=== PATIENT | male | born 1950 | race African-American/Black ===

== ENCOUNTER 2024-03-11 10:31 | Inpatient (IN) | payer OTHER ==
[2024-03-11] MEDS ORDERED: CEFTRIAXONE 1000 MG/VIAL ONE (10:46)
[2024-03-11] MEDS ORDERED: ALBUTEROL 2.5 MG/3 ML NEB SOL ONE (10:46)
[2024-03-11] MEDS ORDERED: IPRATROPIUM BROM 0.5MG/2.5ML ONE (10:47)
[2024-03-11] MEDS ORDERED: NA CHLORIDE 0.9% 1,000 ML ONE (10:47)
[2024-03-11] MEDS ORDERED: METHYLPREDNISOLONE 125 MG INJ ONE (10:47)
[2024-03-11 11:01] LABS: SARS-CoV-2 Antigen CONTROL BLUE LINE VIS/BG OK; SARS-CoV-2 Antigen Rapid Res Negative (Negative)
[2024-03-11 11:25] LABS: PT Prothrombin Time 12.7 SECONDS (9.4-12.5); PTT, Activated Partial Thromb 32.9 SECONDS (24.3-36.9); Protime INR 1.14
--- NOTE | 2024-03-11 11:29 | RAD REPORT ---
EXAMINATION: ONE VIEW CHEST XR CLINICAL INDICATION: COUGH TECHNIQUE: Frontal chest projection is submitted. Examination is limited by patient positioning and t echnique. COMPARISON: No prior exam. FINDINGS: Moderate bilateral pulmonary opacities are present which may represent pulmonary edema or pneumonia. The heart is mildly enlarged in size. Trace right pleural fluid. No displaced fractures identified.
[2024-03-11 11:37] LABS: Absolute Basophils 0.1 K/uL (0-0.5); Absolute Eosinophils 0.1 K/uL (0-0.5); Absolute Lymphocytes (CBC) 1.5 K/uL (0.7-4.9); Absolute Monocytes 0.8 K/uL (0.1-1.3); Absolute Neutrophil 11.7 K/uL (1.8-8.0); Basophils % 0.4 % (0-1.3); Eosinophils % 0.5 % (0-4.4); Hematocrit 41.6 % (39.6-49.0); Hemoglobin 13.8 g/dL (13.6-17.9); Lymphocytes % 10.5 % (15.3-44.8); MCHC 33.2 g/dL (32.0-36.0); MCV 90.4 fL (80-100); MPV 10.7 fL (7.6-11.3); Monocytes % 5.4 % (3.3-12.3); Neutrophils % 83.2 % (41.7-73.7); Platelets 157 thou/uL (152-406); RBC Red Blood Cell Count 4.61 M/uL (4.33-5.43); Red Cell Distribution Width 13.5 % (12.1-15.2)
[2024-03-11 11:38] LABS: Albumin 4.1 g/dL (3.4-5.0); Albumin/Globulin Ratio 1.1 (1.1-1.8); Anion Gap 10.8 mEq/L (5.0-15.0); Bilirubin Total 0.6 mg/dL (0.2-1.0); Globulin 3.8 g/dL (2.3-3.5); Potassium 3.8 mEq/L (3.5-5.1); Protein, Total 7.9 g/dL (6.4-8.2); Troponin High Sensitivity 42.5 pg/mL (<58.9)
[2024-03-11 11:56] LABS: Blood Morphology Comment NOT SEEN (NOT SEEN); Platelet Estimate ADEQ; White Blood Cell Scan OK (OK)
[2024-03-11] MEDS ORDERED: AZITHROMYCIN 500 MG INJ IVPB ONE (11:57)
[2024-03-11] MEDS ORDERED: NA CHLORIDE 0.9% 250 ML ONE (11:57)
[2024-03-11] MEDS ORDERED: LORazepam 2 MG/ML VIAL ONE (12:18)
--- NOTE | 2024-03-11 12:31 | EDPHYS ---
Physician Documentation [facility] Name: Thiago Piper Age: 73 yrs Sex: Male : 1950 Arrival Date: 03/11/2024 Time: 10:31 Bed 7 Private MD: ED Physician Fernie Jeronimo HPI: 03/11 10:37 This 73 yrs old Male presents to ER via EMS with complaints of Shortness Of Breath. ec2 10:37 Patient arrives today for shortness of breath. Reports progressive shortness of breath ec2 since this morning. Patient reports some cough and cold symptoms as well. No vomiting, no diarrhea, no fevers or chills. Reports otherwise no significant medical history. No known pulmonary pathology, no known previous cardiac disease.. Historical: - Allergies: 10:34 No Known Allergies; ld1 - PMHx: 10:37 None; ld1 - PSHx: 10:34 None; ld1 - Immunization history:: Adult Immunizations up to date. - Infectious Disease History:: CDIFF, . - Social history:: Smoking status: Patient denies any tobacco usage or history of. ROS: 10:37 Constitutional: as per hpi ec2 Exam: 10:37 Constitutional: GEN: NAD Head: atraumatic Eyes: EOMI Ears: External ears are ec2 normal. CV: Tachycardia LUNGS: Tachypnea with scattered wheezes noted throughout multiple lung barreto. ABD: non-distended SKIN: no evidence of rashes MSK: no evidence of trauma Vital Signs: 10:33 BP 150 / 93; Pulse 113; Resp 26; Temp 98.6(TE); Pulse Ox 93% on R/A; Weight 77.56 kg; ld1 Height 5 ft. 10 in. ; Pain 0/10; 11:17 BP 154 / 74; Pulse 109; Resp 30; Pulse Ox 92% on R/A; ld1 11:20 Pulse Ox 94% on 2 lpm NC; ld1 12:00 Pulse Ox 91% on 2 lpm NC; ld1 12:10 BP 152 / 79; Pulse 111; Resp 30; Pulse Ox 91% on 2 lpm NC; ld1 12:15 BP 139 / 79; Pulse 104; Resp 28; Pulse Ox 98% on BiPAP; ld1 12:46 BP 114 / 74; Pulse 102; Resp 27; Pulse Ox 96% on BiPAP; ld1 13:45 BP 109 / 69; Pulse 90; ec2 15:06 BP 124 / 76; Pulse 84; Pulse Ox 99% on BiPAP; MAP 92 mmHg; tm6 16:00 BP 119 / 79; Pulse 88; Resp 24; Pulse Ox 98% on BiPAP; ld1 17:00 BP 126 / 75; Pulse 89; Resp 22; Pulse Ox 98% on 5 lpm NC; ld1 10:33 Body Mass Index 24.54 (77.56 kg, 177.8 cm) ld1 10:33 Pain Scale: Adult ld1 MDM: 10:35 Medical Screening Exam initiated ec2 10:37 Data reviewed: vital signs, nurses notes. ED course: Patient arrives today for ec2 evaluation of shortness of breath. Examination yields tachycardia along with tachypnea and scattered wheezes. Will obtain lab work, EKG, chest x-ray.. 10:38 ED course: EKG independently reviewed and interpreted by me, shows sinus tachycardia, ec2 rate of 105, no acute ST segment elevations, intervals are nonactionable.. 11:39 ED course: Patient with slight lactic acid elevation, patient with slight BNP elevation ec2 as well, will continue to slowly fluid resuscitate the patient given concern for potentiating worsening resp distress. 11:44 ED course: Sepsis reassessment complete. ec2 11:56 ED course: Patient with some increased tachypnea, will hold on giving patient's second ec2 liter of crystalloid at this time, high suspicion for volume overload and I want to precipitate worsening respiratory distress. Will place patient on BiPAP in the interim. 12:29 ED course: On reassessment patient breathing comfortably on BiPAP, will admit for CHF ec2 versus pneumonia with BiPAP requirement. Discussed with hospitalist, pending admission.. 13:44 ED course: Sepsis reassessment complete.. ec2 13:45 ED course: Patient with improving tachycardia, marked improvement in work of breathing..ec2 03/11 10:36 Order name: Blood Culture Adult (2) ec2 03/11 10:36 Order name: CBC with Diff; Complete Time: 13:44 ec2 03/11 10:36 Order name: CMP; Complete Time: 11:39 ec2 03/11 10:36 Order name: Lactate w/ 2H reflex if indic.; Complete Time: 11:40 ec2 03/11 10:36 Order name: Protime (+inr); Complete Time: 11:34 ec2 03/11 10:36 Order name: Ptt, Activated; Complete Time: 11:34 ec2 03/11 10:36 Order name: Influenza Screen (a \T\ B); Complete Time: 11:34 ec2 03/11 10:36 Order name: SARS RAPID; Complete Time: 11:15 ec2 03/11 10:36 Order name: Troponin HS; Complete Time: 11:39 ec2 03/11 10:37 Order name: BNP; Complete Time: 11:39 ec2 03/11 11:42 Order name: Ghost Lactate-NO COLLECT Timer; Complete Time: 13:44 EDMS 03/11 11:57 Order name: CBC Smear Scan; Complete Time: 13:44 EDMS 03/11 13:57 Order name: ABG ld1 03/11 14:33 Order name: Lactate Sepsis 2 HR Follow-up; Complete Time: 14:37 EDMS 03/11 16:03 Order name: Magnesium EDMS 03/11 16:03 Order name: CBC with Automated Diff EDMS 03/11 16:03 Order name: CBC with Automated Diff EDMS 03/11 16:03 Order name: CBC with Automated Diff EDMS 03/11 16:03 Order name: CBC with Automated Diff EDMS 03/11 16:03 Order name: Comprehensive Metabolic Panel EDMS 03/11 16:03 Order name: Comprehensive Metabolic Panel EDMS 03/11 16:03 Order name: Comprehensive Metabolic Panel EDMS 03/11 16:03 Order name: Comprehensive Metabolic Panel EDMS 03/11 16:17 Order name: Procalcitonin EDMS 03/11 16:17 Order name: Procalcitonin EDMS 03/11 10:36 Order name: Chest Single View XRAY; Complete Time: 11:34 ec2 03/11 13:19 Order name: BIPAP ec2 03/11 14:52 Order name: Chest For Pe Angio EDMS 03/11 16:03 Order name: Echo with Doppler EDMS 03/11 16:05 Order name: Respiratory Therapy Consult EDMS 03/11 10:36 Order name: Accucheck; Complete Time: 10:39 ec2 03/11 10:36 Order name: Cardiac monitoring; Complete Time: 10:39 ec2 03/11 10:36 Order name: EKG - Nurse/Tech; Complete Time: 10:39 03/11 10:36 Order name: IV Saline Lock - Large Bore; Complete Time: 11:14 03/11 10:36 Order name: Labs collected and sent; Complete Time: 11:14 03/11 10:36 Order name: O2 Per Protocol; Complete Time: 10:39 03/11 10:36 Order name: O2 Sat Monitoring; Complete Time: 10:39 03/11 10:36 Order name: Vital Signs; Complete Time: 10:39 ec2 Administered Medications: 11:16 Drug: DuoNeb Nebulize (3:1) (2.5 mg - 0.5 mg) 3 ml Nebulizer once Route: Nebulizer; ld1 11:43 Follow up: Response: No adverse reaction ld1 11:16 Drug: MethylPrednisoLONE IVP 125 mg IVP once Route: IVP; Site: right antecubital; ld1 11:43 Follow up: Response: No adverse reaction ld1 11:16 Drug: Rocephin IV 1 grams IV at calculated rate once; Given slow IV push per pharmacy ld1 instructions Route: IV; Rate: calculated rate; Site: right antecubital; 11:43 Follow up: Response: No adverse reaction; IV Status: Completed infusion ld1 11:16 Drug: NS 0.9% IV 1000 ml IV at 1 bolus Per protocol; to be given as a bolus over 60 ld1 minutes Route: IV; Rate: 1 bolus; Site: right antecubital; 11:43 Follow up: Response: No adverse reaction; IV Status: Completed infusion; IV Intake: ld1 1000ml 12:09 Not Given (Physician Discretion): ns 0.9% 1000 ml IV at 1 bolus Per protocol; to be ld1 given as a bolus over 60 minutes 12:10 Drug: AZITHromycin IVPB 500 mg IVPB once over 1 hrs; (mix in 250 mL NS) Route: IVPB; ld1 Infused Over: 1 hrs; Site: right antecubital; 12:45 Follow up: Response: No adverse reaction; IV Status: Completed infusion; IV Intake: ld1 250ml 12:24 Drug: Ativan IVP 0.5 mg IVP once Route: IVP; Site: right antecubital; ld1 12:34 Follow up: Response: No adverse reaction ld1 12:44 Drug: Codeine-Guaifenesin PO Liquid (10 mg-100 mg/5 mL) 5 ml PO once Route: PO; ld1 12:45 Follow up: Response: No adverse reaction ld1 12:44 Drug: Tessalon Perle PO 100 mg PO once Route: PO; ld1 12:46 Follow up: Response: No adverse reaction ld1 Disposition: 12:29 Critical Care:. ec2 Disposition Summary: 03/11/24 12:30 Hospitalization Ordered Notes: Hospitalization Status: Inpatient Admission ec2 Provider: Henrry Benton ec2 Condition: Stable ec2 Problem: new ec2 Symptoms: have improved ec2 Bed/Room Type: Standard ec2 Location: Intensive Care Unit(03/11/24 16:29) Room Assignment: 7-(03/11/24 16:29) Diagnosis - Heart failure, unspecified ec2 - Pneumonia, unspecified organism ec2 - Severe sepsis without septic shock ec2 Forms: - Medication Reconciliation Form ec2 - SBAR form ec2 - Leadership Thank You Letter ec2 Critical care time excluding procedures: 12:29 Critical care time: Bedside Care: 30 minutes, Consultation: 5 minutes. Total time: 35 ec2 minutes Signatures: Dispatcher [employer] Marlyn Muller RN RN Kayleen Arriaga RN RN ld1 Fernie Jeronimo MD MD ec2 Corrections: (The following items were deleted from the chart) 10:37 10:37 BLOOD CULTURE*+BA.LAB.BRZ ordered. EDMS EDMS 10:37 10:37 CBC+H.LAB.BRZ ordered. EDMS EDMS 10:37 10:37 COMPREHENSIVE METABOLIC PANEL+C.LAB.BRZ ordered. EDMS EDMS 10:37 10:37 LACTATE+C.LAB.BRZ ordered. EDMS EDMS 10:37 10:37 PROTIME (+INR)+COAG.LAB.BRZ ordered. EDMS EDMS 10:37 10:37 PTT, ACTIVATED+COAG.LAB.BRZ ordered. EDMS EDMS 10:37 10:37 Influenza Screen (A \T\ B)+BA.LAB.BRZ ordered. EDMS EDMS 10:37 10:37 SARS-COV-2 Antigen Rapid+I.LAB.BRZ ordered. EDMS EDMS 10:37 10:37 Troponin High Sensitivity+C.LAB.BRZ ordered. EDMS EDMS 10:37 10:37 Chest Single View+RAD.RAD.BRZ ordered. EDMS EDMS 15:25 12:30 ec2 ss 15:48 12:30 Telemetry/MedSurg (Inpatient) ec2 ss 15:48 15:25 220 ss ss 15:49 15:48 ss ss 16:29 15:48 [facility] ER HOLD ss ss 16:29 15:49 ERHOLD- ss ss
--- NOTE | 2024-03-11 12:31 | ER ---
Nurse's Notes [facility] Name: Thiago Piper Age: 73 yrs Sex: Male : 1950 Arrival Date: 03/11/2024 Time: 10:31 Bed 7 Private MD: Diagnosis: Heart failure, unspecified;Pneumonia, unspecified organism;Severe sepsis without septic shock Presentation: 03/11 10:33 Chief complaint: EMS states: Shortness of breath beginning this morning. Coronavirus ld1 screen: At this time, the client does not indicate any symptoms associated with coronavirus-19. Ebola Screen: No symptoms or risks identified at this time. Initial Sepsis Screen: Does the patient meet any 2 criteria? No. Patient's initial sepsis screen is negative. Does the patient have a suspected source of infection? No. Patient's initial sepsis screen is negative. Risk Assessment: Do you want to hurt yourself or someone else? Patient reports no desire to harm self or others. Onset of symptoms was March 11, 2024 at 10:33. 10:33 Method Of Arrival: EMS: [facility] ld1 10:33 Acuity: SORIN 2 ld1 Triage Assessment: 10:34 General: Appears in no apparent distress. uncomfortable, Behavior is cooperative, ld1 anxious. Pain: Denies pain. EENT: No signs and/or symptoms were reported regarding the EENT system. Neuro: Level of Consciousness is awake, alert, obeys commands, Oriented to person, place, time, situation, Appropriate for age. Cardiovascular: Capillary refill is > 3 seconds Patient's skin is warm and dry. Rhythm is sinus tachycardia. Respiratory: Reports shortness of breath at rest on exertion Airway is patent Respiratory effort is even, labored, Onset: The symptoms/episode began/occurred this morning, the patient has moderate shortness of breath. GI: Abdomen is flat, non-distended. : No signs and/or symptoms were reported regarding the genitourinary system. Derm: No signs and/or symptoms reported regarding the dermatologic system. Musculoskeletal: No signs and/or symptoms reported regarding the musculoskeletal system. Historical: - Allergies: 10:34 No Known Allergies; ld1 - PMHx: 10:37 None; ld1 - PSHx: 10:34 None; ld1 - Immunization history:: Adult Immunizations up to date. - Infectious Disease History:: CDIFF, . - Social history:: Smoking status: Patient denies any tobacco usage or history of. Screenin:37 [facility] ED Fall Risk Assessment (Adult) History of falling in the last 3 months, ld1 including since admission No falls in past 3 months (0 pts) Confusion or Disorientation No (0 pts) Intoxicated or Sedated No (0 pts) Impaired Gait No (0 pts) Mobility Assist Device Used No (0 pt) Altered Elimination No (0 pt) Score/Fall Risk Level 0 - 2 = Low Risk Oriented to surroundings, Maintained a safe environment, Educated pt \T\ family on fall prevention, incl call for assistance when getting out of bed, Assessed \T\ reinforced patient's understanding of fall precautions, Provided non-skid footwear, Hourly rounding (assess needs \T\ fall precautionary measures) done, Used ambulatory aids as needed (educated on \T\ assisted with), Used gait belt as appropriate. Abuse screen: Denies threats or abuse. Denies injuries from another. Abuse screen: Denies threats or abuse. Nutritional screening: No deficits noted. Tuberculosis screening: No symptoms or risk factors identified. Assessment: 10:37 Reassessment: See triage assessment. Cardiovascular: Capillary refill < 3 seconds ld1 Patient's skin is warm and dry. Cardiovascular: Rhythm is sinus tachycardia. Respiratory: Airway is patent Respiratory effort is even, labored, Breath sounds with wheezes bilaterally. 11:17 Reassessment: No changes from previously documented assessment. Pt c/o shortness of ld1 breath. Notified ERP. Patient states symptoms have not improved. 11:20 Reassessment: Pt placed on 2L NC per Dr. Jeronimo. ld1 12:10 Reassessment: RT at bedside - BIPAP requested by ERP. ld1 12:15 Reassessment: Pt requesting anxiety medication for BIPAP machine. Notified ERP. See MAY ld1 for orders. 13:30 Reassessment: Patient appears in no apparent distress at this time. No changes from ld1 previously documented assessment. Patient denies pain at this time. 15:00 Reassessment: Patient appears in no apparent distress at this time. No changes from ld1 previously documented assessment. Patient states symptoms have improved. 17:00 Reassessment: Patient appears in no apparent distress at this time. No changes from ld1 previously documented assessment. Respiratory: Reports shortness of breath Airway is patent Respiratory effort is even, labored. Vital Signs: 10:33 BP 150 / 93; Pulse 113; Resp 26; Temp 98.6(TE); Pulse Ox 93% on R/A; Weight 77.56 kg; ld1 Height 5 ft. 10 in. ; Pain 0/10; 11:17 BP 154 / 74; Pulse 109; Resp 30; Pulse Ox 92% on R/A; ld1 11:20 Pulse Ox 94% on 2 lpm NC; ld1 12:00 Pulse Ox 91% on 2 lpm NC; ld1 12:10 BP 152 / 79; Pulse 111; Resp 30; Pulse Ox 91% on 2 lpm NC; ld1 12:15 BP 139 / 79; Pulse 104; Resp 28; Pulse Ox 98% on BiPAP; ld1 12:46 BP 114 / 74; Pulse 102; Resp 27; Pulse Ox 96% on BiPAP; ld1 13:45 BP 109 / 69; Pulse 90; ec2 15:06 BP 124 / 76; Pulse 84; Pulse Ox 99% on BiPAP; MAP 92 mmHg; tm6 16:00 BP 119 / 79; Pulse 88; Resp 24; Pulse Ox 98% on BiPAP; ld1 17:00 BP 126 / 75; Pulse 89; Resp 22; Pulse Ox 98% on 5 lpm NC; ld1 10:33 Body Mass Index 24.54 (77.56 kg, 177.8 cm) ld1 10:33 Pain Scale: Adult ld1 ED Course: 10:32 Patient arrived in ED. ld1 10:34 Fernie Jeronimo MD is Attending Physician. ec2 10:34 Triage completed. ld1 10:34 Arm band placed on right wrist. ld1 10:37 Patient has correct armband on for positive identification. Placed in gown. Bed in low ld1 position. Call light in reach. Side rails up X2. environmental monitoring specialist on. Pulse ox on. NIBP on. Door closed. Noise minimized. Warm blanket given. 10:37 No provider procedures requiring assistance completed. ld1 10:39 Kayleen Arriaga, MALENA is Primary Nurse. ld1 10:45 SARS RAPID Sent. ld1 10:45 Influenza Screen (a \T\ B) Sent. ld1 10:49 Chest Single View XRAY In Process Unspecified. EDMS 10:56 First set of blood cultures drawn by me. ty 11:10 Inserted saline lock: 20 gauge in right antecubital area, using aseptic technique. ty Blood collected. Flushed with 10 mL NS. 11:10 Initial lab(s) drawn, by me, sent to lab. Second set of blood cultures drawn by me. ty 11:14 Blood Culture Adult (2) Sent. ty 11:14 CBC with Diff Sent. ty 11:14 CMP Sent. ty 11:14 Lactate w/ 2H reflex if indic. Sent. ty 11:15 Protime (+inr) Sent. ty 11:15 Ptt, Activated Sent. ty 11:15 BNP Sent. ty 11:15 Troponin HS Sent. ty 12:30 Henrry Benton is Hospitalizing Provider. ec2 15:52 Chest For Pe Angio In Process Unspecified. EDMS 17:22 Patient admitted, IV remains in place. ld1 Administered Medications: 11:16 Drug: DuoNeb Nebulize (3:1) (2.5 mg - 0.5 mg) 3 ml Nebulizer once Route: Nebulizer; ld1 11:43 Follow up: Response: No adverse reaction ld1 11:16 Drug: MethylPrednisoLONE IVP 125 mg IVP once Route: IVP; Site: right antecubital; ld1 11:43 Follow up: Response: No adverse reaction ld1 11:16 Drug: Rocephin IV 1 grams IV at calculated rate once; Given slow IV push per pharmacy ld1 instructions Route: IV; Rate: calculated rate; Site: right antecubital; 11:43 Follow up: Response: No adverse reaction; IV Status: Completed infusion ld1 11:16 Drug: NS 0.9% IV 1000 ml IV at 1 bolus Per protocol; to be given as a bolus over 60 ld1 minutes Route: IV; Rate: 1 bolus; Site: right antecubital; 11:43 Follow up: Response: No adverse reaction; IV Status: Completed infusion; IV Intake: ld1 1000ml 12:09 Not Given (Physician Discretion): ns 0.9% 1000 ml IV at 1 bolus Per protocol; to be ld1 given as a bolus over 60 minutes 12:10 Drug: AZITHromycin IVPB 500 mg IVPB once over 1 hrs; (mix in 250 mL NS) Route: IVPB; ld1 Infused Over: 1 hrs; Site: right antecubital; 12:45 Follow up: Response: No adverse reaction; IV Status: Completed infusion; IV Intake: ld1 250ml 12:24 Drug: Ativan IVP 0.5 mg IVP once Route: IVP; Site: right antecubital; ld1 12:34 Follow up: Response: No adverse reaction ld1 12:44 Drug: Codeine-Guaifenesin PO Liquid (10 mg-100 mg/5 mL) 5 ml PO once Route: PO; ld1 12:45 Follow up: Response: No adverse reaction ld1 12:44 Drug: Tessalon Perle PO 100 mg PO once Route: PO; ld1 12:46 Follow up: Response: No adverse reaction ld1 Medication: 10:37 VIS not applicable for this client. ld1 Intake: 11:43 IV: 1000ml; Total: 1000ml. ld1 12:45 IV: 250ml; Total: 1250ml. ld1 Outcome: 12:30 Decision to Hospitalize by Provider. ec2 17:22 Admitted to ICU accompanied by nurse, accompanied by tech, via stretcher, room 7, ld1 Report called to MALENA Taveras 17:22 Condition: stable 17:22 Instructed on the need for admit, 17:25 Patient left the ED. ld1 Signatures: Dispatcher [employer] Kayleen Dominguez RN RN ld1 Fernie Jeronimo MD MD ec2 Yocasta Adams RN RN [id number] Ryan Morrison
[2024-03-11] MEDS ORDERED: BENZONATATE 100 MG CAP PO ONE (12:33)
[2024-03-11] MEDS ORDERED: GUAIFENESIN/CODEINE 5ML UCUP ONE (12:34)
--- NOTE | 2024-03-11 14:43 | P.HP ---
Certification for Inpatient Patient admitted to: Inpatient With expected LOS: >2 Midnights Patient will require the following post-hospital care: None Practitioner: I am a practitioner with admitting privileges, knowledge of patient current condition, hospital course, and medical plan of care. Services: Services provided to patient in accordance with Admission requirements found in Title 42 Section 412.3 of the Code of Federal Regulations Patient History Date of Service: 03/11/24 Reason for admission: Acute hypoxic respiratory failure History of Present Illness: Mr. Piper is a 73-year-old gentleman who denies any past medical history. He presented to the emergency department this morning with a complaint of sudden shortness of breath occurring at 9 AM. Initial vital signs 150/93, 113, 26, 93% on room air, 98.6. Secondary to COPD exacerbation concerns and a 2.1 lactate, 1250 mL of normal saline were administered in the emergency department. Upon lab review with elevated BNP and pulmonary edema on chest x-ray. fluids DC'd. Mr. Piper did experience some worsening tachypnea and was placed on BiPAP. Hospitalist group was asked to admit the patient for acute respiratory failure. We ordered a CT PE protocol and will obtain an ABG. On exam Mr. Piper states he is feeling better, he denies chest pain, orthopnea, fever, chills. He is noted to remain tachycardic, has a holosystolic blowing mitral murmur, no edema, positive expiratory wheezes. Abdomen soft, nontender, bowel sounds present x 4 quadrants. Patient does state he smokes 1 pack/day for many years, has no known lung or cardiac. Family history: States his father had diabetes and his brother had heart disease. He takes no medications. He states he does rarely take an aspirin. Labs are essentially unremarkable except for a white count of 14 with a small left shift, lactate 2.1, proBNP 5056. Of note troponin is negative at 42.5 and flu and COVID are negative. Imaging shows bilateral pulmonary opacities which could represent fluid overload versus infectious process. Will proceed with CT scanning of the chest for PE and better differentiation between COPD exacerbation, pneumonia, pleural effusion, atelectasis, pulmonary embolism, or even postobstructive pneumonia before placing orders. CT PE protocol does not show PE, pneumonia, COPD, it does show small bilateral pleural effusions with atelectasis Will admit to the acute care floor. Allergies No Known Allergies Allergy (Unverified 03/11/24 14:43) Home medications list reviewed: Yes (None) Home Medications: NK [No Home Meds] 03/11/24 - Past Medical/Surgical History Has patient received pneumonia vaccine in the past: No Diabetic: No Past Medical History: Patient denies medical history Psychosocial/ Personal History: States he does not have a doctor, does not see a doctor, takes no medications, but is not allergic to any known medications - Family History Father -: Diabetes Brother -: Heart disease - Social History Smoking Status: Current every day smoker Alcohol use: No CD- Drugs: No Caffeine use: Yes Place of Residence: Home Review of Systems 10-point ROS is otherwise unremarkable General: Unremarkable Eyes: Unremarkable ENT: Unremarkable Respiratory: Shortness of Breath (Suddenly at 9 AM) Cardiovascular: Other (Denies chest pain) Gastrointestinal: Other (Denies nausea vomiting or bloating) Genitourinary: Unremarkable Musculoskeletal: Unremarkable Integumentary: Unremarkable Neurological: Other (Denies syncope) Lymphatics: Unremarkable Physical Examination - Vital Signs Blood Pressure: 109/72 Pulse: 100 Respirations: 22 Pulse Ox (%): 96 (On BiPAP) - Physical Exam General: Alert, In no apparent distress, Oriented x3, Other (On BiPAP) HEENT: Atraumatic, Normocephalic Neck: Supple Respiratory: Expiratory wheezes Cardiovascular: No edema, Regular rate/rhythm, Systolic murmur (Loud blowing holosystolic murmur at left mid axillary line) Capillary refill: <2 Seconds Gastrointestinal: Soft and benign Musculoskeletal: No clubbing, No swelling Integumentary: No rashes, No breakdown Neurological: Normal speech, Normal tone, Normal affect Lymphatics: No axilla or inguinal lymphadenopathy External genitalia: Deferred Rectal: Deferred - Studies Laboratory Data (last 24 hrs) 03/11/24 03/11/24 03/11/24 11:10 11:10 11:10 WBC 14.00 H Hgb 13.8 Hct 41.6 Plt Count 157 PT 12.7 H INR 1.14 APTT 32.9 Sodium 139 Potassium 3.8 BUN 14 Creatinine 0.90 Glucose 134 H Total Bilirubin 0.6 AST 16 ALT 19 Alkaline Phosphatase 91 Microbiology Data (last 24 hrs): 03/11/24 10:43 Nasopharnyx Influenza Type A Antigen Screen - Final 03/11/24 10:43 Nasopharnyx Influenza Type B Antigen Screen - Final Assessment and Plan - Plan Acute hypoxic respiratory failure secondary to Bilateral pleural effusions with atelectasis Elevated lactate likely related to above as opposed to sepsis Sinus tachycardia ABG normal without evidence of CO2 retention SARS and influenza negative Telemetry Will continue IV Rocephin until results of Pro-Deric tomorrow morning, blood cultures were obtained in ED Neb treatments every 4 to 6 hours as needed O2 per nasal cannula to keep sats above 93% Head of bed up 30 degrees, pulmonary toilet Monitor and trend labs including CBC, CMP, and procalcitonin ASA 81mg po daily Atorvastatin 40mg po q HS Lasix 40 mg IV every 12 Strict I&O Transthoracic echo GI and DVT prophylaxis. Protonix/Lovenox Full Code: no living will Expected dicharge to home in 1-2 days Discharge Plan: Home Plan to discharge in: Greater than 2 days - Advance Directives Does patient have a Living Will: No Does patient have a Durable POA for Healthcare: No - Code Status/Comfort Care Code Status Assessed: Yes (Full) Critical Care: No
[2024-03-11] MEDS ORDERED: SODIUM CHLORIDE 0.9% 10ML INJ IV PRN (15:46)
[2024-03-11 15:50] LABS: Blood O2 Saturation 96.8 % (92-98.5)
[2024-03-11 15:51] LABS: Arterial Blood Carboxyhemoglob 1.8 % (0-1.5); Blood Gas Oxyhemoglobin 93.4 % (94-97)
--- NOTE | 2024-03-11 16:20 | RAD REPORT ---
EXAMINATION: CTA CHEST PE CLINICAL INDICATION: Pulmonary edema rule out PE TECHNIQUE: This examination was performed according to an angiographic protocol with 3D post-processi ng. This involves 3D reconstructions, MIPs, volume rendered images and/or shaded surface rendering. One or more of the following dose reduction techniques were used: Automated exposure control, adjustm ent of the mA and/or kV according to patient size, and/or iterative reconstruction. Unless otherwise specified, incidental findings do not require dedicated imaging follow-up. COMPARISON: No prior exam. FINDINGS: PULMONARY ARTERIES: Normal caliber. No evidence of pulmonary emboli to the subsegmental level. THORACIC AORTA: Normal caliber and configuration. LUNGS: Mild bibasilar airspace opacities are present in the lung bases. The lungs also demonstrate di ffuse emphysema with mild interstitial pulmonary edema likely present. PLEURA: Small bilateral pleural effusions, greater on the right. MEDIASTINUM AND LYMPH NODES: Mildly enlarged lymph nodes are seen in the mediastinum, in the subcarin al space measuring up to 2.7 cm, both [place], AP window and prevascular space as well. OSSEOUS STRUCTURES AND CHEST WALL: Intact. UPPER ABDOMEN: No significant abnormalities. IMPRESSION: No evidence of pulmonary emboli to the subsegmental level. Interstitial pulmonary edema is seen with mild bibasilar lung opacities in both lung bases and small pleural effusions. CHF would be a possibility. Indeterminate mildly prominent lymph nodes in the mediastinum and [place].
[2024-03-11] MEDS: FUROSEMIDE 40 MG/4 ML VIAL IV SCH (18:28)
[2024-03-11] MEDS: ATORVASTATIN 40 MG TAB PO SCH (19:48)
[2024-03-11] MEDS: Mupirocin NASAL 2 APPL/1 GM TUBE NAS SCH (19:48)
[2024-03-12 05:24] LABS: Absolute Basophils 0.1 K/uL (0-0.5); Absolute Lymphocytes (CBC) 1.1 K/uL (0.7-4.9); Absolute Monocytes 0.7 K/uL (0.1-1.3); Absolute Neutrophil 14.4 K/uL (1.8-8.0); Basophils % 0.4 % (0-1.3); Eosinophils % 0.1 % (0-4.4); Hemoglobin 12.3 g/dL (13.6-17.9); Lymphocytes % 6.6 % (15.3-44.8); MCH 30.2 pg (27.0-35.0); MCHC 33.3 g/dL (32.0-36.0); MCV 90.5 fL (80-100); MPV 11.2 fL (7.6-11.3); Monocytes % 4.2 % (3.3-12.3); Nucleated Red Blood Cells % 0.1 % (0-0); Platelets 155 thou/uL (152-406); RBC Red Blood Cell Count 4.08 M/uL (4.33-5.43); Red Cell Distribution Width 13.5 % (12.1-15.2)
[2024-03-12 05:25] LABS: Neutrophils % 88.7 % (41.7-73.7)
[2024-03-12 05:51] LABS: Albumin 3.5 g/dL (3.4-5.0); Albumin/Globulin Ratio 1.1 (1.1-1.8); Bilirubin Total 0.8 mg/dL (0.2-1.0); Globulin 3.3 g/dL (2.3-3.5); Protein, Total 6.8 g/dL (6.4-8.2)
--- NOTE | 2024-03-12 07:30 | P.PN ---
Date of Service: 03/12/24 Subjective Weaned overnight to 1.5 L O2, afebrile no evidence of sepsis, however blood pressure soft so we will decrease Lasix. Mr. Piper states he forgot to inform us yesterday that he had an exposure at work to NAP (powder) at work a few months ago and had to get oxygen per EMS, otherwise no treatment. Patient states since that time he has had intermittent bouts of shortness of breath with tightening in his throat. Review of Systems 10-point ROS is otherwise unremarkable General: Unremarkable Eyes: Unremarkable ENT: Unremarkable Respiratory: Shortness of Breath (Suddenly at 9 AM) -resolved Cardiovascular: Other (Denies chest pain) Gastrointestinal: Other (Denies nausea vomiting or bloating) Genitourinary: Unremarkable Musculoskeletal: Unremarkable Integumentary: Unremarkable Neurological: Other (Denies syncope) Lymphatics: Unremarkable Physical Examination - Vital Signs reviewed, BP soft overnight - Physical Exam General: Alert, In no apparent distress, Oriented x3, on 1.5L O2 HEENT: Atraumatic, Normocephalic Neck: Supple Respiratory: CTA Cardiovascular: No edema, Regular rate/rhythm, Systolic murmur (Loud blowing holosystolic murmur at left mid axillary line) Capillary refill: <2 Seconds Gastrointestinal: Soft and benign Musculoskeletal: No clubbing, No swelling Integumentary: No rashes, No breakdown Neurological: Normal speech, Normal tone, Normal affect Lymphatics: No axilla or inguinal lymphadenopathy External genitalia: Deferred Rectal: Deferred - Studies Laboratory Data (last 24 hrs) 03/11/24 03/11/24 03/11/24 11:10 11:10 11:10 WBC 14.00 H Hgb 13.8 Hct 41.6 Plt Count 157 PT 12.7 H INR 1.14 APTT 32.9 Sodium 139 Potassium 3.8 BUN 14 Creatinine 0.90 Glucose 134 H Total Bilirubin 0.6 AST 16 ALT 19 Alkaline Phosphatase 91 Microbiology Data (last 24 hrs): 03/11/24 10:43 Nasopharnyx Influenza Type A Antigen Screen - Final 03/11/24 10:43 Nasopharnyx Influenza Type B Antigen Screen - Final Assessment and Plan - Plan Acute hypoxic respiratory failure secondary to Bilateral pleural effusions with atelectasis Elevated lactate likely related to above as opposed to sepsis Sinus tachycardia ABG normal without evidence of CO2 retention taken off BiPap 03/11 SARS and influenza negative Telemetry Will continue IV Rocephin until results of Pro-Deric tomorrow morning, blood cultures were obtained in ED, NE of infection 03/12, IV abx stopped Neb treatments every 4 to 6 hours as needed (03/12/24 WBC mildly elevated today 2nd to nebs and ED administration of steroids), NE of sepsis O2 per nasal cannula to keep sats above 93% Head of bed up 30 degrees, pulmonary toilet Monitor and trend labs including CBC, CMP, and procalcitonin - negative ASA 81mg po daily Atorvastatin 40mg po q HS Lasix 40 mg IV every 12 - blood pressure overnight soft, no respiratory distress. On O2 at 2L, will decrease frequency to daily and then switch to po prn ECHO results. Strict I&O Transthoracic echo GI and DVT prophylaxis. Protonix/Lovenox 03/12/23 will downgrade to acute care now Full Code: no living will Expected dicharge to home in 1-2 days Discharge Plan: Home Plan to discharge in: today or tomorrow - Advance Directives Does patient have a Living Will: No Does patient have a Durable POA for Healthcare: No - Code Status/Comfort Care Code Status Assessed: Yes (Full) Critical Care: No
[2024-03-12] MEDS: ALBUTEROL 2.5 MG/3 ML NEB SOL NEB SCH (07:51)
[2024-03-12] MEDS: IPRATROPIUM BROM 0.5MG/2.5ML NEB SCH (07:51)
[2024-03-12] MEDS: ASPIRIN EC 81 MG TAB PO SCH (08:23)
[2024-03-12] MEDS: FUROSEMIDE 40 MG/4 ML VIAL IV SCH (08:24)
[2024-03-12] MEDS: ENOXAPARIN 40 MG/0.4 ML SQ SCH (08:24)
[2024-03-12] MEDS: PANTOPRAZOLE 40 MG INJ IVP SCH (08:24)
[2024-03-12] MEDS ORDERED: CEFTRIAXONE 1,000 MG in NA CHLORIDE 0.9% 50 ML IVPB SCH (09:00)
--- NOTE | 2024-03-12 17:01 | P.DS ---
Admission Date: 03/11/24 Discharge Date: 03/13/24 Disposition: ROUTINE DISCHARGE Discharge Condition: GOOD Reason for Admission: Acute hypoxic respiratory failure Procedures: Transthoracic echocardiogram: Mild TR, trace MR, mildly dilated left ventricle, severe aortic stenosis, DD with low normal EF at 45-50% Brief History of Present Illness: Mr. Piper is a 73-year-old gentleman who denies any past medical history. He presented to the emergency department this morning with a complaint of sudden shortness of breath occurring at 9 AM. Initial vital signs 150/93, 113, 26, 93% on room air, 98.6. Secondary to COPD exacerbation concerns and a 2.1 lactate, 1250 mL of normal saline were administered in the emergency department. Upon lab review with elevated BNP and pulmonary edema on chest x-ray. fluids DC'd. Mr. Piper did experience some worsening tachypnea and was placed on BiPAP. Hospitalist group was asked to admit the patient for acute respiratory failure. We ordered a CT PE protocol and will obtain an ABG. On exam Mr. Piper states he is feeling better, he denies chest pain, orthopnea, fever, chills. He is noted to remain tachycardic, has a holosystolic blowing mitral murmur, no edema, positive expiratory wheezes. Abdomen soft, nontender, bowel sounds present x 4 quadrants. Patient does state he smokes 1 pack/day for many years, has no known lung or cardiac. Family history: States his father had diabetes and his brother had heart disease. He takes no medications. He states he does rarely take an aspirin. Labs are essentially unremarkable except for a white count of 14 with a small left shift, lactate 2.1, proBNP 5056. Of note troponin is negative at 42.5 and flu and COVID are negative. Imaging shows bilateral pulmonary opacities which could represent fluid overload versus infectious process. Will proceed with CT scanning of the chest for PE and better differentiation between COPD exacerbation, pneumonia, pleural effusion, atelectasis, pulmonary embolism, or even postobstructive pneumonia before placing orders. CT PE protocol does not show PE, pneumonia, COPD, it does show small bilateral pleural effusions with atelectasis Will admit to the acute care floor. Hospital Course: Mr. Piper did well over the course of his hospitalization. Denied chest pain or shortness of breath. Wheezing and rhonchi resolved. Loud murmur evaluated with ECHO. + severe aortic stenosis with low normal EF 45-50%, + Diastolic dysfunction. He will follow up with Dr. Souza and likely be sent to CT Surgeon for Aortic Valve Replacement. He was counseled to stop smoking. Secondary to CAD risk factors, we with discharge him with Aspirin 81mg po daily, atorvastatin 40mg po q hs, )for severe aortic stenosis with normal ejection fraction) tors emide 10mg po daily, spironolactone 12.5mg po daily. We are unable to add a vasodilator or beta ion seconodary to borderline hypotension/orthostatic hypotension. He is to follow up with Dr. Souza in 1-2 weeks for evaluation and coordination of care for evaluation per Cardiothoracic Surgeon. Vital Signs/Physical Exam: Temp Pulse Resp BP Pulse Ox 98.0 F 96 H 20 96/51 L 100 03/12/24 14:23 03/12/24 14:23 03/12/24 14:23 03/12/24 14:23 03/12/24 14:23 General: Alert, In no apparent distress, Oriented x3 HEENT: Atraumatic, Normocephalic Neck: Supple, JVD not distended Respiratory: Normal air movement, Rhonchi/gurgles (mild at bases) Cardiovascular: No edema, Normal pulses, Regular rate/rhythm, Systolic murmur (holosystolic with radiation up left neck) Capillary refill: <2 Seconds Gastrointestinal: Normal bowel sounds, Soft and benign Musculoskeletal: No clubbing, No swelling Integumentary: No rashes Neurological: Normal speech, Normal tone, Normal affect Lymphatics: No axilla or inguinal lymphadenopathy External genitalia: Deferred Rectal: Deferred Laboratory Data at Discharge: WBC 16.20 thou/uL (4.3-10.9) H 03/12/24 04:51 Hgb 12.3 g/dL (13.6-17.9) L D 03/12/24 04:51 Hct 37.0 % (39.6-49.0) L 03/12/24 04:51 Plt Count 155 thou/uL (152-406) 03/12/24 04:51 PT 12.7 SECONDS (9.4-12.5) H 03/11/24 11:10 INR 1.14 03/11/24 11:10 APTT 32.9 SECONDS (24.3-36.9) 03/11/24 11:10 Sodium 138 mEq/L (136-145) 03/12/24 04:51 Potassium 4.0 mEq/L (3.5-5.1) 03/12/24 04:51 BUN 20 mg/dL (7-18) H 03/12/24 04:51 Creatinine 1.09 mg/dL (0.70-1.30) 03/12/24 04:51 Glucose 155 mg/dL (74-106) H 03/12/24 04:51 Magnesium 1.6 mg/dL (1.6-2.4) 03/11/24 16:32 Total Bilirubin 0.8 mg/dL (0.2-1.0) 03/12/24 04:51 AST 15 U/L (15-37) 03/12/24 04:51 ALT 16 U/L (16-61) 03/12/24 04:51 Alkaline Phosphatase 78 U/L (45-117) 03/12/24 04:51 Home Medications: Albuterol Inhaler [Ventolin Inhaler*] 2 puff IH Q6H PRN #2 unit 03/12/24 Aspirin [Aspirin EC 81 MG] 81 mg PO DAILY #90 tab 03/12/24 Atorvastatin Calcium [Lipitor] 40 mg PO BEDTIME #30 tab 03/12/24 Spironolactone [Aldactone] 12.5 mg PO DAILY #45 tab 03/13/24 Torsemide 10 mg PO DAILY #90 tab 03/13/24 New Medications: Spironolactone [Aldactone] 12.5 mg PO DAILY #45 tab Aspirin [Aspirin EC 81 MG] 81 mg PO DAILY #90 tab Atorvastatin Calcium [Lipitor] 40 mg PO BEDTIME #30 tab Torsemide 10 mg PO DAILY #90 tab Albuterol Inhaler [Ventolin Inhaler*] 2 puff IH Q6H PRN #2 unit PRN Reason: Shortness Of Breath Diet: AHA Activity: Ad ida Followup: Marcelo Diamond MD [ACTIVE - CAN ADMIT] - NONE,NONE [Primary Care Provider] - Sander Souza MD [ACTIVE - CAN ADMIT] -
[2024-03-12 17:29] VITALS: BMI 24.5
[2024-03-13 05:21] LABS: Absolute Basophils 0.1 K/uL (0-0.5); Absolute Eosinophils 0.1 K/uL (0-0.5); Absolute Lymphocytes (CBC) 2.9 K/uL (0.7-4.9); Absolute Monocytes 0.9 K/uL (0.1-1.3); Absolute Neutrophil 8.6 K/uL (1.8-8.0); Basophils % 0.6 % (0-1.3); Hematocrit 35.5 % (39.6-49.0); Hemoglobin 11.9 g/dL (13.6-17.9); MCH 30.2 pg (27.0-35.0); MCHC 33.6 g/dL (32.0-36.0); MPV 10.8 fL (7.6-11.3); Monocytes % 6.9 % (3.3-12.3); Neutrophils % 68.5 % (41.7-73.7); Platelets 144 thou/uL (152-406); RBC Red Blood Cell Count 3.94 M/uL (4.33-5.43); Red Cell Distribution Width 13.6 % (12.1-15.2)
[2024-03-13 05:38] LABS: Albumin 3.5 g/dL (3.4-5.0); Albumin/Globulin Ratio 1.2 (1.1-1.8); Anion Gap 5.8 mEq/L (5.0-15.0); Bilirubin Total 0.5 mg/dL (0.2-1.0); Phosphorus 3.4 mg/dL (2.5-4.9); Potassium 3.8 mEq/L (3.5-5.1); Protein, Total 6.5 g/dL (6.4-8.2)
--- NOTE | 2024-03-13 07:52 | ECHO ---
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 2-DIMENSIONAL: YES M.MODE: YES DOPPLER: YES COLOR FLOW: YES TDS: NO PORTABLE: YES DEFINITY: NO BUBBLE STUDY: NO DIAGNOSIS: MURMUR, PULMONARY EDEMA WITH RESPIRATORY FAILURE CARDIAC HISTORY: CATHERIZATION: SURGERY: PROSTHETIC VALVE: PACEMAKER: MEASUREMENTS (cm) DIASTOLIC (NORMALS) SYSTOLIC (NORMALS) IVSd 1.1 (0.6-1.2) LA Diam 3.4 (1.9-4.0) LVEF 45-50% LVIDd 6.0 (3.5-5.7) LVIDs 4.7 (2.0-3.5) %FS 22% LVPWd 1.2 (0.6-1.2) Ao Diam 3.3 (2.0-3.7) 2 DIMENSIONAL ASSESSMENT: RIGHT ATRIUM: NORMAL LEFT ATRIUM: NORMAL RIGHT VENTRICLE: NORMAL LEFT VENTRICLE: MILDLY DILATED TRICUSPID VALVE: MILD TRICUSPID REGURGITATION MITRAL VALVE: TRACE MITRAL REGURGITATION PULMONIC VALVE: NORMAL AORTIC VALVE: CALCIFIED PERICARDIAL EFFUSION: NONE AORTIC ROOT: NORMAL LEFT VENTRICULAR WALL MOTION: NORMAL. DOPPLER/COLOR FLOW: DIASTOLIC DYSFUNCTION. COMMENTS: 1. LOW NORMAL LEFT VENTRICULAR SYSTOLIC FUNCTION, EJECTION FRACTION 45-50%, NORMAL WALL MOTION. 2. DIASTOLIC DYSFUNCTION. 3. SEVERE AORTIC VALVE STENOSIS (AORTIC VALVE AREA 0.6 CENTIMETERS, MEAN GRADIENT 60mmHg) 4. MILD AORTIC REGURGITATION. 5. NORMAL FILLING PRESSURE (RIGHT ATRIAL PRESSURE 0-5mmHg). TECHNOLOGIST: JENNA TINOCO
[2024-03-13 08:34] VITALS: BP 90/47; TEMP 97.7
[2024-03-13] MEDS: POTASSIUM CL SA 10 MEQ TAB PO ONE (09:10)
[2024-03-13 09:40] VITALS: O2SAT 100
--- NOTE | 2024-03-13 12:46 | EKG ---
Test Date: 2024-03-11 Test Time: 10:34:10 Supervisor [employer]od[employer] Assembly: TEAGAN MEASUREMENT RESULTS: Intervals: Rate: 105 MS: 150 QRSD: 84 QT: 358 QTc: 473 [place]: P: 80 MS: 150 QRS: 55 T: 103 INTERPRETIVE STATEMENTS: Sinus tachycardia ST & T wave abnormality, consider lateral ischemia Abnormal ECG No previous ECG available for comparison Electronically Signed On 03-13-24 12:41:56 ASSISTANT DIRECTOR OF PUBLIC WORKS by Sander Souza
== END 2024-03-13 12:04 | disposition home or self-care (01) | DRG 291 ==
LOC: ER 10:31 → ERHOLD 15:46 → 3RD-ICU 16:54 → 2ND 03-12 13:53
PROVIDERS: ADMIT Internal Medicine; ATTEND Internal Medicine
PROC: 5A09357 Assistance with Respiratory Ventilation, Less than 24 Consecutive Hours, Continuous Positive Airway Pressure (ICD-10-PCS; principal; 2024-03-11)
PROC: 4A033R1 Measurement of Arterial Saturation, Peripheral, Percutaneous Approach (ICD-10-PCS; 2024-03-11)
DX: I50.33 Acute on chronic diastolic (congestive) heart failure (principal); J96.01 Acute respiratory failure with hypoxia; J44.1 Chronic obstructive pulmonary disease with (acute) exacerbation; I95.1 Orthostatic hypotension; I08.3 Combined rheumatic disorders of mitral, aortic and tricuspid valves; F17.200 Nicotine dependence, unspecified, uncomplicated; R00.0 Tachycardia, unspecified; Z71.6 Tobacco abuse counseling; Z11.52 Encounter for screening for COVID-19
CPT/HCPCS: 36415; 36600; 71045; 71275; 80053; 82805; 83605; 83735; 83880; 84100; 84145; 84484; 85025; 85610; 85730; 87040; 87804; 87811; 93005; 93306; 94660; 96365; 96367; 96375; 99285; J0696; J1650; J1940; J2470; J2919; J7030; J7050; J7613; J7644; Q9967

== ENCOUNTER 2024-04-29 06:44 | Inpatient (IN) | payer OTHER ==
[2024-04-29 07:20] LABS: Absolute Basophils 0.1 K/uL (0-0.5); Absolute Eosinophils 0.2 K/uL (0-0.5); Absolute Lymphocytes (CBC) 2.3 K/uL (0.7-4.9); Absolute Monocytes 0.4 K/uL (0.1-1.3); Basophils % 0.7 % (0-1.3); Hematocrit 36.1 % (39.6-49.0); Hemoglobin 12.1 g/dL (13.6-17.9); Lymphocytes % 22.6 % (15.3-44.8); MCH 29.8 pg (27.0-35.0); MCHC 33.4 g/dL (32.0-36.0); MCV 89.2 fL (80-100); MPV 10.3 fL (7.6-11.3); Monocytes % 4.2 % (3.3-12.3); Neutrophils % 70.5 % (41.7-73.7); Platelets 202 thou/uL (152-406); RBC Red Blood Cell Count 4.05 M/uL (4.33-5.43); Red Cell Distribution Width 14.1 % (12.1-15.2)
--- NOTE | 2024-04-29 07:20 | RAD REPORT ---
EXAM: Chest Single View HISTORY: CHEST PAIN COMPARISON: 03/11/2024 FINDINGS: LUNGS/PLEURA: Bilateral interstitial and airspace disease, worsened from prior. Small right pleural e ffusion. MEDIASTINUM: The mediastinal silhouette is within normal limits. CARDIAC: Mild to moderate cardiomegaly. UPPER ABDOMEN: No significant abnormality. BONES: No acute abnormality. LINES/TUBES/OTHER: N/A IMPRESSION: Widespread interstitial and airspace disease with small right effusion most consistent with pulmonary edema.
[2024-04-29] MEDS ORDERED: IPRATROPIUM BROM 0.5MG/2.5ML ONE ×2 (07:22→13:42)
[2024-04-29] MEDS ORDERED: ALBUTEROL 2.5 MG/3 ML NEB SOL ONE ×2 (07:22→13:41)
[2024-04-29] MEDS ORDERED: METHYLPREDNISOLONE 125 MG INJ ONE (07:22)
[2024-04-29] MEDS ORDERED: VANCOMYCIN 1 GM/VIAL ONE (07:23)
[2024-04-29] MEDS ORDERED: NA CHLORIDE 0.9% 250 ML ONE (07:23)
[2024-04-29] MEDS ORDERED: NA CHLORIDE 0.9% 100 ML ONE (07:23)
[2024-04-29] MEDS ORDERED: FUROSEMIDE 40 MG/4 ML VIAL ONE ×3 (07:23→16:08)
[2024-04-29] MEDS ORDERED: CEFEPIME 2 GM VIAL ONE (07:23)
[2024-04-29] MEDS ORDERED: LEVALBUTEROL 1.25 MG/3 ML NEB ONE ×2 (07:23→07:41)
[2024-04-29 07:30] LABS: D-Dimer 6.468 FEUug/mL (0-0.500); PT Prothrombin Time 13.8 SECONDS (9.4-12.5); PTT, Activated Partial Thromb 29.7 SECONDS (24.3-36.9); Protime INR 1.32
[2024-04-29 07:40] LABS: Albumin 3.6 g/dL (3.4-5.0); Anion Gap 9.6 mEq/L (5.0-15.0); Bilirubin Direct 0.3 mg/dL (0-0.2); Bilirubin Indirect, Calculated 0.4 mg/dL (0.2-0.8); Bilirubin Total 0.7 mg/dL (0.2-1.0); Globulin 3.7 g/dL (2.3-3.5); Magnesium 2.2 mg/dL (1.6-2.4); Potassium 3.6 mEq/L (3.5-5.1); Protein, Total 7.3 g/dL (6.4-8.2); Troponin High Sensitivity 30.4 pg/mL (<58.9)
[2024-04-29 08:54] LABS: Arterial Blood Carboxyhemoglob 1.5 % (0-1.5); Blood Gas Oxyhemoglobin 95.8 % (94-97); Blood O2 Saturation 98.9 % (92-98.5)
--- NOTE | 2024-04-29 10:13 | ER ---
Nurse's Notes [facility] Name: Thiago Piper Age: 73 yrs Sex: Male : 1950 Arrival Date: 04/29/2024 Time: 06:44 Bed 4 Private MD: Diagnosis: Acute pulmonary edema;Hypoxemia Presentation: 04/29 06:55 Chief complaint: EMS states: toned to plant for SOB. on arrival PT in tripod position. lg3 O2 89% on room air. administered 125 Solu-Medrol and neb treatment. Pt arrived to ED on 15L via non rebreather with O2 saturation of 98% . Coronavirus screen: Client denies travel out of the [place] in the last 14 days. Client presents with at least one sign or symptom that may indicate coronavirus-19. Ebola Screen: No symptoms or risks identified at this time. Risk Assessment: Do you want to hurt yourself or someone else? Patient reports no desire to harm self or others. Onset of symptoms was April 29, 2024. 06:55 Method Of Arrival: EMS: [facility] lg3 06:55 Acuity: SORIN 2 lg3 19:35 Initial Sepsis Screen: Does the patient meet any 2 criteria? No. Patient's initial bm8 sepsis screen is negative. Does the patient have a suspected source of infection? No. Patient's initial sepsis screen is negative. Triage Assessment: 06:55 General: Appears distressed, Behavior is cooperative. Pain: Denies pain. EENT: No lg3 deficits noted. No signs and/or symptoms were reported regarding the EENT system. Neuro: [place] Agitation-Sedation Scale (RASS): +1 Restless Level of Consciousness is awake, alert, obeys commands, Oriented to person, place, time, situation. Cardiovascular: No deficits noted. Reports shortness of breath. Respiratory: Airway is patent Respiratory effort is labored, gasping, using tripod position. Derm: Skin is diaphoretic. Historical: - Allergies: 07:18 No Known Allergies; ld1 - Home Meds: 07:18 None [Active]; ld1 - PMHx: 07:18 None; ld1 - PSHx: 07:18 None; ld1 - Immunization history:: Adult Immunizations up to date. - Infectious Disease History:: Denies. - Family history:: not pertinent. - Social history:: Smoking status: Patient denies any tobacco usage or history of. - Hospitalizations: : The patient was recently seen at [facility]. Screenin:11 [facility] ED Fall Risk Assessment (Adult) History of falling in the last 3 months, ld1 including since admission No falls in past 3 months (0 pts) Confusion or Disorientation No (0 pts) Intoxicated or Sedated No (0 pts) Impaired Gait No (0 pts) Mobility Assist Device Used No (0 pt) Altered Elimination No (0 pt) Score/Fall Risk Level 0 - 2 = Low Risk Oriented to surroundings, Hourly rounding (assess needs \T\ fall precautionary measures) done. Abuse screen: Denies threats or abuse. Denies injuries from another. Nutritional screening: No deficits noted. Tuberculosis screening: No symptoms or risk factors identified. Assessment: 07:11 General: Appears in no apparent distress. uncomfortable, Behavior is calm, cooperative. ld1 Pain: Denies pain. Neuro: Level of Consciousness is awake, alert, obeys commands, Oriented to person, place, time, situation, Appropriate for age. Cardiovascular: Capillary refill < 3 seconds Patient's skin is warm and dry. Rhythm is sinus tachycardia. Respiratory: Airway is patent Respiratory effort is even, labored, Patient placed on BiPAP:. GI: Abdomen is flat, non-distended. : No signs and/or symptoms were reported regarding the genitourinary system. EENT: No signs and/or symptoms were reported regarding the EENT system. Derm: No signs and/or symptoms reported regarding the dermatologic system. Musculoskeletal: No signs and/or symptoms reported regarding the musculoskeletal system. 08:17 Reassessment: Patient appears in no apparent distress at this time. No changes from ld1 previously documented assessment. Patient and/or family updated on plan of care and expected duration. Pain level reassessed. Patient denies pain at this time. Patient states feeling better. Patient states symptoms have improved. 09:02 Reassessment: Patient appears in no apparent distress at this time. No changes from ld1 previously documented assessment. Patient and/or family updated on plan of care and expected duration. Pain level reassessed. Patient denies pain at this time. Patient states feeling better. 09:12 Reassessment: Meri Hassan - [phone] - Family friend. Personal contact. ld1 12:49 Reassessment: Patient appears in no apparent distress at this time. No changes from ld1 previously documented assessment. Patient and/or family updated on plan of care and expected duration. Pain level reassessed. RT discontinued BIPAP at this time. 19:17 Reassessment: Patient appears in no apparent distress at this time. Patient and/or bm8 family updated on plan of care and expected duration. Pain level reassessed. Patient is alert, oriented x 3, equal unlabored respirations, skin warm/dry/pink. Patient denies pain at this time. Patient states feeling better. Patient states symptoms have improved. Respiratory: Airway is patent Respiratory effort is even, unlabored, Respiratory pattern is regular, symmetrical, Breath sounds with crackles bilaterally. Vital Signs: 07:00 BP 125 / 75; Pulse 108; Resp 33; Pulse Ox 100% on BiPAP; ld1 07:18 Weight 78 kg; Height 6 ft. 1 in. ; Pain 0/10; ld1 08:17 BP 93 / 70; Pulse 93; Resp 27; Pulse Ox 100% on BiPAP; ld1 09:02 BP 105 / 84; Pulse 96; Resp 20; Pulse Ox 100% on BiPAP; ld1 09:12 BP 106 / 54; Pulse 87; Resp 20; Pulse Ox 100% on BiPAP; ld1 12:49 BP 120 / 62; Pulse 92; Resp 22; Pulse Ox 97% on R/A; ld1 12:50 BP 120 / 62; Pulse 86; Resp 17; Pulse Ox 96% on R/A; ld1 19:17 BP 108 / 66; Pulse 89; Resp 24; Temp 97.8; Pulse Ox 97% on R/A; Pain 0/10; bm8 07:18 Body Mass Index 22.69 (78.00 kg, 185.42 cm) ld1 07:18 Pain Scale: Adult ld1 19:17 Pain Scale: Adult bm8 12:49 BIPAP D/C by RT Pearl ld1 [place] Coma Score: 19:17 Eye Response: spontaneous(4). Motor Response: obeys commands(6). Verbal Response: bm8 oriented(5). Total: 15. ED Course: 06:46 Patient arrived in ED. kmf 06:55 Arm band placed on right wrist. lg3 06:58 Brett Alvarez MD is Attending Physician. sp4 07:02 Triage completed. lg3 07:02 First set of blood cultures drawn by me. rv1 07:04 Inserted saline lock: 20 gauge in left antecubital area, using aseptic technique. Blood rv1 collected. Flushed with 10 mL NS. 07:09 Chest Single View XRAY In Process Unspecified. EDMS 07:10 Attending Physician role handed off by Brett Alvarez MD rn 07:10 Jose Mathias MD is Attending Physician. rn 07:11 Kayleen Arriaga RN is Primary Nurse. ld1 07:11 Patient has correct armband on for positive identification. Bed in low position. Call ld1 light in reach. Side rails up X2. cardiac monitor technician on. Pulse ox on. NIBP on. Door closed. Noise minimized. 07:11 No provider procedures requiring assistance completed. Inserted saline lock: 20 gauge ld1 in right antecubital area, using aseptic technique. 07:47 Lactate w/ 2H reflex if indic. Sent. ld1 07:47 Blood Culture Adult (2) Sent. ld1 07:47 ABG Sent. ld1 10:12 Narciso Aceves MD is Hospitalizing Provider. rn 19:17 Provided Education on: need for admission. bm8 19:17 Patient admitted, IV remains in place. bm8 Administered Medications: 07:27 Not Given (Duplicate Order): DuoNeb Nebulize (3:1) (2.5 mg - 0.5 mg) 3 ml Nebulizer oncern 07:46 Drug: Cefepime IVPB 2 grams IVPB at 200 ml/hr once over 30 mins; (mix in NS 100 mL) ld1 Route: IVPB; Rate: 200 ml/hr; Infused Over: 30 mins; Site: left antecubital; 08:17 Follow up: Response: No adverse reaction; IV Status: Completed infusion; IV Intake: ld1 100ml 07:46 Drug: Levalbuterol Inhalation 1.25 mg Inhalation once Route: Inhalation; ld1 07:48 Follow up: Response: No adverse reaction ld1 07:47 Drug: MethylPrednisoLONE IVP 125 mg IVP once Route: IVP; Site: left antecubital; ld1 07:47 Follow up: Response: No adverse reaction ld1 07:47 Drug: Furosemide IVP 40 mg IVP once; give over 2 minutes Route: IVP; Site: right ld1 antecubital; 07:48 Follow up: Response: No adverse reaction ld1 07:47 Drug: vancoMYCIN IVPB 1 grams IVPB once over 2 hrs Route: IVPB; Infused Over: 2 hrs; ld1 Site: right antecubital; 19:19 Follow up: Response: No adverse reaction; IV Status: Completed infusion; IV Intake: bm8 250ml 10:11 Drug: Furosemide IVP 40 mg IVP once; give over 2 minutes Route: IVP; Site: left ld1 antecubital; 19:18 Follow up: Response: No adverse reaction bm8 Medication: 07:11 VIS not applicable for this client. ld1 Intake: 08:17 IV: 100ml; Total: 100ml. ld1 19:19 IV: 250ml; Total: 350ml. bm8 Outcome: 10:12 Decision to Hospitalize by Provider. rn 19:17 Admitted to Med/surg accompanied by tech, via stretcher, room 203, with chart, bm8 19:17 Condition: stable 19:17 Instructed on follow up and referral plans. the need for admit, Demonstrated understanding of instructions, follow-up care, medications, 20:16 Patient left the ED. bm8 Signatures: Dispatcher [employer] EDMS Jose Mathias MD MD rn Able, Lacie, RN RN lg3 Kayleen Arriaga RN RN ld1 Tangela Youssef Sergey, MD MD sp4 Niecy Guido [facility] Otf Abrams RN MALENA bm8
--- NOTE | 2024-04-29 10:13 | EDPHYS ---
Physician Documentation [facility] Name: Thiago Piper Age: 73 yrs Sex: Male : 1950 Arrival Date: 04/29/2024 Time: 06:44 Bed 4 Private MD: ED Physician Jose Mathias HPI: 04/29 07:16 This 73 yrs old Black Male presents to ER via EMS with complaints of Shortness Of rn Breath. 07:16 The patient has shortness of breath at rest. Onset: The symptoms/episode began/occurred rn at an unknown time. Duration: The symptoms are continuous. The patient's shortness of breath is aggravated by exertion, light activity, is alleviated by application of supplemental oxygen. Associated signs and symptoms: Pertinent negatives: chest pain, fever, hemoptysis. Severity of symptoms: At their worst the symptoms were moderate in the emergency department the symptoms are unchanged. The patient has experienced a previous episode. The patient has not recently seen a physician. EMS brought in patient, was picked up for dyspnea, patient reported somewhat recent diagnosis of pneumonia on admission to the hospital. No fever reported. Patient with cough and dyspnea. No chest pain. Given Solu-Medrol and breathing treatment by EMS and brought in on facemask.. Historical: - Allergies: 07:18 No Known Allergies; ld1 - Home Meds: 07:18 None [Active]; ld1 - PMHx: 07:18 None; ld1 - PSHx: 07:18 None; ld1 - Immunization history:: Adult Immunizations up to date. - Infectious Disease History:: Denies. - Family history:: not pertinent. - Social history:: Smoking status: Patient denies any tobacco usage or history of. - Hospitalizations: : The patient was recently seen at [facility]. ROS: 07:16 Constitutional: Negative for fever, chills, and weight loss, Neck: Negative for injury, rn pain, and swelling, Cardiovascular: Negative for chest pain, palpitations, and edema, Respiratory: Positive for cough and shortness of breath Abdomen/GI: Negative for abdominal pain, nausea, vomiting, diarrhea, and constipation, MS/Extremity: Negative for injury and deformity, Skin: Negative for injury, rash, and discoloration, Neuro: Negative for headache, weakness, numbness, tingling, and seizure, Exam: 07:16 Constitutional: This is a well developed, well nourished patient who is awake, alert, rn and in moderate respiratory distress Head/Face: Normocephalic, atraumatic. Cardiovascular: Tachycardic, regular Respiratory: Moderate tachypnea with retractions, diminished bases Abdomen/GI: Soft, non-tender MS/ Extremity: Pulses equal, no cyanosis. Neuro: Awake and alert, GCS 15 07:23 ECG was reviewed by the Attending Physician. rn Vital Signs: 07:00 BP 125 / 75; Pulse 108; Resp 33; Pulse Ox 100% on BiPAP; ld1 07:18 Weight 78 kg; Height 6 ft. 1 in. ; Pain 0/10; ld1 08:17 BP 93 / 70; Pulse 93; Resp 27; Pulse Ox 100% on BiPAP; ld1 09:02 BP 105 / 84; Pulse 96; Resp 20; Pulse Ox 100% on BiPAP; ld1 09:12 BP 106 / 54; Pulse 87; Resp 20; Pulse Ox 100% on BiPAP; ld1 12:49 BP 120 / 62; Pulse 92; Resp 22; Pulse Ox 97% on R/A; ld1 12:50 BP 120 / 62; Pulse 86; Resp 17; Pulse Ox 96% on R/A; ld1 19:17 BP 108 / 66; Pulse 89; Resp 24; Temp 97.8; Pulse Ox 97% on R/A; Pain 0/10; bm8 07:18 Body Mass Index 22.69 (78.00 kg, 185.42 cm) ld1 07:18 Pain Scale: Adult ld1 19:17 Pain Scale: Adult bm8 12:49 BIPAP D/C by RT Pearl ld1 Mobile Coma Score: 19:17 Eye Response: spontaneous(4). Motor Response: obeys commands(6). Verbal Response: bm8 oriented(5). Total: 15. MDM: 07:10 Medical Screening Exam initiated rn 09:30 Differential diagnosis: CHF exacerbation, pneumonia, Pneumothorax pulmonary edema. Data rn reviewed: vital signs, nurses notes, lab test result(s), EKG, radiologic studies, plain films, and as a result, I will admit patient. Consideration of Admission/Observation Patient was admitted/placed on observation. Escalation of care including admission/observation considered. ED course: Patient markedly improved on BiPAP, patient much more alert, talkative and states "feels 99% better". Imaging more consistent with pulmonary edema as he had a few weeks ago and not pneumonia. Empiric antibiotics given for possibility but seems more like pulmonary edema/CHF.. 10:11 Counseling: I had a detailed discussion with the patient and/or guardian regarding the rn historical points, exam findings, and any diagnostic results supporting the discharge/admit diagnosis, lab results, radiology results, the need for further work-up and treatment in the hospital. Response to treatment: the patient's symptoms have markedly improved after treatment, and as a result, I will admit patient. ED course: I personally spent 35 minutes engaged in work directly related to the individual patient's care. This does not include any time spent performing procedures. The patient has been deemed critically ill because of acute respiratory distress and pulmonary edema requiring BiPAP and resuscitation.. 04/29 07:00 Order name: BMP; Complete Time: : [facility] 04/29 07:00 Order name: Blood Culture Adult (2) [facility] 04/29 07:00 Order name: CBC with Diff; Complete Time: : 04/29 07:00 Order name: CPK; Complete Time: : [facility] 04/29 07:00 Order name: D-Dimer; Complete Time: 04/29 07:00 Order name: Hepatic Function; Complete Time: 04/29 07:00 Order name: Lipase; Complete Time: : [facility] 04/29 07:00 Order name: Magnesium; Complete Time: : [facility] 04/29 07:00 Order name: NT PRO-BNP; Complete Time: : 04/29 07:00 Order name: PT-INR; Complete Time: : [facility] 04/29 07:00 Order name: Ptt, Activated; Complete Time: : [facility] 04/29 07:00 Order name: Troponin HS; Complete Time: : [facility] 04/29 07:00 Order name: ABG; Complete Time: : [facility] 04/29 07:09 Order name: Lactate w/ 2H reflex if indic.; Complete Time: 16:20 rn 04/29 07:09 Order name: LFT's; Complete Time: 16:20 04/29 10:35 Order name: Ghost Lactate-NO COLLECT Timer; Complete Time: 16:20 EDMS 04/29 12:50 Order name: Magnesium; Complete Time: 16:20 EDMS 04/29 12:50 Order name: Phosphorus; Complete Time: 16:20 EDMS 04/29 12:50 Order name: Urinalysis w/ reflexes; Complete Time: 16:20 EDMS 04/29 12:50 Order name: Basic Metabolic Panel EDMS 04/29 12:50 Order name: Basic Metabolic Panel EDMS 04/29 12:50 Order name: CBC with Automated Diff EDMS 04/29 12:50 Order name: CBC with Automated Diff EDMS 04/29 13:23 Order name: Lactate Sepsis 2 HR Follow-up; Complete Time: 16:20 EDMS 04/29 06:58 Order name: BIPAP 4 04/29 06:59 Order name: Chest Single View XRAY; Complete Time: 09:29 4 04/29 12:54 Order name: Chest For Pe Angio; Complete Time: 16:20 EDMS 04/29 07:00 Order name: Call RT 4 04/29 07:00 Order name: EKG; Complete Time: 07:00 4 04/29 07:00 Order name: Cardiac monitoring; Complete Time: 07:15 4 04/29 07:00 Order name: EKG - Nurse/Tech; Complete Time: 07:15 sp4 04/29 07:00 Order name: IV Saline Lock; Complete Time: 07:15 4 04/29 07:00 Order name: Labs collected and sent; Complete Time: 07:15 4 04/29 07:00 Order name: O2 Per Protocol; Complete Time: 07:15 sp4 04/29 07:00 Order name: O2 Sat Monitoring; Complete Time: 07:15 4 04/29 07:09 Order name: Accucheck; Complete Time: 07:15 rn 04/29 07:09 Order name: IV Saline Lock - Large Bore; Complete Time: 07:15 rn 04/29 07:09 Order name: Vital Signs; Complete Time: 07:15 rn EC:23 Rate is 123 beats/min. Rhythm is regular. QRS [place] is Normal. CA interval is normal. rn QRS interval is normal. QT interval is normal. No Q waves. T waves are Inverted in leads V5, V6. No ST changes noted. Clinical impression: Sinus tachycardia. Interpreted by me. Reviewed by me. Administered Medications: 07:27 Not Given (Duplicate Order): DuoNeb Nebulize (3:1) (2.5 mg - 0.5 mg) 3 ml Nebulizer oncern 07:46 Drug: Cefepime IVPB 2 grams IVPB at 200 ml/hr once over 30 mins; (mix in NS 100 mL) ld1 Route: IVPB; Rate: 200 ml/hr; Infused Over: 30 mins; Site: left antecubital; 08:17 Follow up: Response: No adverse reaction; IV Status: Completed infusion; IV Intake: ld1 100ml 07:46 Drug: Levalbuterol Inhalation 1.25 mg Inhalation once Route: Inhalation; ld1 07:48 Follow up: Response: No adverse reaction ld1 07:47 Drug: MethylPrednisoLONE IVP 125 mg IVP once Route: IVP; Site: left antecubital; ld1 07:47 Follow up: Response: No adverse reaction ld1 07:47 Drug: Furosemide IVP 40 mg IVP once; give over 2 minutes Route: IVP; Site: right ld1 antecubital; 07:48 Follow up: Response: No adverse reaction ld1 07:47 Drug: vancoMYCIN IVPB 1 grams IVPB once over 2 hrs Route: IVPB; Infused Over: 2 hrs; ld1 Site: right antecubital; 19:19 Follow up: Response: No adverse reaction; IV Status: Completed infusion; IV Intake: bm8 250ml 10:11 Drug: Furosemide IVP 40 mg IVP once; give over 2 minutes Route: IVP; Site: left ld1 antecubital; 19:18 Follow up: Response: No adverse reaction bm8 Disposition: 10:11 Critical Care:. 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 Total time: 35 minutes rn Signatures: Dispatcher [employer] Breanne Banuelos Roman, MD MD rn ArriagaKayleen RN RN ld1 Brett Alvarez MD MD sp4 Otf Abrams RN bm8 Corrections: (The following items were deleted from the chart) 07:47 07:00 Carrie loyd spMartell ld1 13:46 10:12 Intensive Care Unit rn bd 13:46 10:12 rn bd 18:33 13:46 [facility] 18:33 13:46 ERHOLD- bd bd
[2024-04-29 10:31] LABS: Albumin 3.7 g/dL (3.4-5.0); Albumin/Globulin Ratio 0.9 (1.1-1.8); Bilirubin Direct 0.2 mg/dL (0-0.2); Bilirubin Indirect, Calculated 0.5 mg/dL (0.2-0.8); Bilirubin Total 0.7 mg/dL (0.2-1.0); Protein, Total 7.7 g/dL (6.4-8.2)
[2024-04-29] MEDS ORDERED: ONDANSETRON 4 MG/2 ML VIAL IV PRN (12:45)
[2024-04-29] MEDS ORDERED: ALBUTEROL INHALER 200 PUFF/6.7 GM IH PRN (12:57)
--- NOTE | 2024-04-29 12:58 | P.HP ---
Patient History Date of Service: 04/29/24 Reason for admission: SOB and cough History of Present Illness: Patient is a 73-year-old male with past medical history significant for CHF, hyperlipidemia who presents with complaint of shortness of breath onset this morning. Patient reported associated signs and symptoms of cough. Patient denies any other signs and symptoms. Symptoms are aggravated by exertion and relieved by nothing. Patient decided to present to the hospital due to w orsening symptoms. Allergies No Known Allergies Allergy (Unverified 03/11/24 14:43) Home Medications: Albuterol Inhaler [Ventolin Inhaler*] 2 puff IH Q6H PRN #2 unit 03/12/24 Aspirin [Aspirin EC 81 MG] 81 mg PO DAILY #90 tab 03/12/24 Atorvastatin Calcium [Lipitor] 40 mg PO BEDTIME #30 tab 03/12/24 Spironolactone [Aldactone] 12.5 mg PO DAILY #45 tab 03/13/24 Torsemide 10 mg PO DAILY #90 tab 03/13/24 - Past Medical/Surgical History Diabetic: No -: Combined Systolic and Diastolic CHF -: HLD Past Surgical History: Reviewed- Non-Contributory Psychosocial/ Personal History: States he does not have a doctor, does not see a doctor, takes no medications, but is not allergic to any known medications - Family History Father -: Diabetes Brother -: Heart disease - Social History Smoking Status: Current every day smoker Counseled patient to stop smoking for: less than 10 minutes Smoking therapy provided: Yes Patient receptive to therapy: Yes Alcohol use: Yes CD- Drugs: No Caffeine use: Yes Place of Residence: Home Review of Systems General: Unremarkable Eyes: Unremarkable ENT: Unremarkable Respiratory: Cough, Shortness of Breath Cardiovascular: Unremarkable Gastrointestinal: Unremarkable Genitourinary: Unremarkable Musculoskeletal: Unremarkable Integumentary: Unremarkable Neurological: Unremarkable Lymphatics: Unremarkable Physical Examination - Vital Signs Pulse: 117 Pulse Ox (%): 99 - Physical Exam General: Alert, In no apparent distress, Oriented x3, Cooperative HEENT: Atraumatic, PERRLA, Mucous membr. moist/pink, EOMI, Sclerae nonicteric Neck: Supple, 2+ carotid pulse no bruit, No LAD, Without JVD or thyroid abnormality Respiratory: Clear to auscultation bilaterally, Diminished Cardiovascular: No edema, Regular rate/rhythm, Normal S1 S2 Capillary refill: <2 Seconds Gastrointestinal: Normal bowel sounds, Soft and benign, Non-distended, No tenderness Musculoskeletal: No clubbing, No swelling, No tenderness Integumentary: No rashes Neurological: Normal gait, Normal speech, Normal tone, Normal affect Lymphatics: No axilla or inguinal lymphadenopathy - Studies Laboratory Data (last 24 hrs) 04/29/24 04/29/24 04/29/24 10:00 07:02 07:02 WBC 10.00 Hgb 12.1 L Hct 36.1 L Plt Count 202 PT 13.8 H INR 1.32 APTT 29.7 Sodium Potassium BUN Creatinine Glucose Magnesium Total Bilirubin 0.7 AST 20 ALT 24 Alkaline Phosphatase 97 Lipase 04/29/24 07:02 WBC Hgb Hct Plt Count PT INR APTT Sodium 139 Potassium 3.6 BUN 17 Creatinine 1.17 Glucose 304 H Magnesium 2.2 Total Bilirubin 0.7 AST 19 ALT 25 Alkaline Phosphatase 99 Lipase 17 Assessment and Plan - Plan Acute on chronic systolic and diastolic CHF exacerbation. Acute respiratory failure with hypoxia --Patient placed on diuresis with Lasix. --Daily weight and strict I/O. --Continue BiPAP therapy Acute on chronic COPD exacerbation --Continue treatment with Atrovent\albuterol Hyperlipidemia --Continue statin Lactic acidosis. --Likely secondary to respiratory distress --Repeat levels indicates resolution. 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 Anemia of chronic disease --H&H stable. --Transfuse if hemoglobin less than 7.0 Elevated D-dimer --CTA PE protocol pending to rule out PE. Nicotine dependence. --Patient counseled on tobacco cessation --Refuses nicotine patch. DVT prophylaxis with heparin subQ. Plan to discharge in: Greater than 2 days - Advance Directives Does patient have a Living Will: No Does patient have a Durable POA for Healthcare: No - Code Status/Comfort Care Code Status Assessed: Yes Code Status: Full Code Physician Review: Patient Assessed, Agree with Above Assessment and Plan Critical Care: No
--- NOTE | 2024-04-29 13:36 | RAD REPORT ---
EXAMINATION: CTA CHEST PE CLINICAL INDICATION: Elevated D-Dimer TECHNIQUE: This examination was performed according to an angiographic protocol with 3D post-processi ng. This involves 3D reconstructions, MIPs, volume rendered images and/or shaded surface rendering. One or more of the following dose reduction techniques were used: Automated exposure control, adjustm ent of the mA and/or kV according to patient size, and/or iterative reconstruction. Unless otherwise specified, incidental findings do not require dedicated imaging follow-up. COMPARISON: 03/11/2024 FINDINGS: PULMONARY ARTERIES: Normal caliber. No evidence of pulmonary emboli to the subsegmental level. THORACIC AORTA: Normal caliber and configuration. LUNGS: Moderately severe COPD. Moderate segmental atelectasis in both lung bases. PLEURA: Small left and [id number] right pleural effusion. MEDIASTINUM AND LYMPH NODES: Mildly prominent lymph nodes seen in the mediastinum and hilum likely re active. OSSEOUS STRUCTURES AND CHEST WALL: Intact. UPPER ABDOMEN: No significant abnormalities. IMPRESSION: No evidence of pulmonary emboli to the subsegmental level. Moderately severe COPD. Segmental atelectasis in both lung bases with pleural effusions, similar to prior study.
[2024-04-29] MEDS: ALBUTEROL 2.5 MG/3 ML NEB SOL NEB SCH (13:47)
[2024-04-29] MEDS: IPRATROPIUM BROM 0.5MG/2.5ML NEB SCH (13:47)
[2024-04-29 14:04] LABS: Magnesium 1.9 mg/dL (1.6-2.4); Phosphorus 2.5 mg/dL (2.5-4.9)
[2024-04-29 16:13] LABS: Urine Bilirubin NEGATIVE (Negative); Urine Blood Negative (Negative); Urine Clarity Clear (Clear); Urine Color Light-Yellow (Yellow); Urine Glucose NEGATIVE (Negative); Urine Ketones NEGATIVE (Negative); Urine Microscopic Reflex YN NO UMIC; Urine Nitrite NEGATIVE (Negative); Urine Protein NEGATIVE (Negative); Urine Urobilinogen Normal (Normal); Urine pH 5.5 (5.0-7.0)
[2024-04-29 16:15] LABS: Specific Gravity > 1.030 (1.005-1.030)
[2024-04-29] MEDS: FUROSEMIDE 40 MG/4 ML VIAL IV SCH (16:18)
[2024-04-29] MEDS: HEPARIN 5000 UNIT/ML 1 ML VIAL SQ SCH (20:33)
[2024-04-29] MEDS: ATORVASTATIN 40 MG TAB PO SCH (20:33)
[2024-04-30 04:50] LABS: Absolute Basophils 0.1 K/uL (0-0.5); Absolute Lymphocytes (CBC) 1.1 K/uL (0.7-4.9); Absolute Neutrophil 15.3 K/uL (1.8-8.0); Basophils % 0.8 % (0-1.3); Hematocrit 35.3 % (39.6-49.0); Hemoglobin 11.9 g/dL (13.6-17.9); Lymphocytes % 6.3 % (15.3-44.8); MCH 29.8 pg (27.0-35.0); MCHC 33.7 g/dL (32.0-36.0); MCV 88.6 fL (80-100); MPV 9.6 fL (7.6-11.3); Monocytes % 5.8 % (3.3-12.3); Neutrophils % 87.1 % (41.7-73.7); Nucleated Red Blood Cells % 0.1 % (0-0); Platelets 203 thou/uL (152-406); RBC Red Blood Cell Count 3.98 M/uL (4.33-5.43); Red Cell Distribution Width 13.7 % (12.1-15.2)
[2024-04-30 05:07] LABS: Anion Gap 8.8 mEq/L (5.0-15.0); Potassium 3.8 mEq/L (3.5-5.1)
[2024-04-30 07:42] LABS: Differential Total Cells Count 100
[2024-04-30 07:43] LABS: Blood Morphology Comment NOT SEEN (NOT SEEN); Lymphocytes 5 % (15-42); Monocytes 7 % (0-10); Platelet Estimate ADEQ; Segmented Neutrophils 88 % (40-80)
[2024-04-30] MEDS: POTASSIUM 25 MEQ EFFERV TAB PO ONE (08:40)
[2024-04-30] MEDS: SPIRONOLACTONE 25 MG TABLET PO SCH (08:42)
[2024-04-30] MEDS: ASPIRIN EC 81 MG TAB PO SCH (08:42)
[2024-04-30 08:54] VITALS: O2SAT 95
[2024-04-30 11:55] VITALS: TEMP 97.8
--- NOTE | 2024-04-30 12:54 | P.CNS ---
Date of Consult: 04/30/24 Chief Complaint: SOB and cough History of Present Illness: Patient with PMH of HTN, , presented with worsening SOB, cough, denies chest pain, no dizzy spells, no syncope. no chest pain. Allergies No Known Allergies Allergy (Unverified 03/11/24 14:43) Home medications list reviewed: Yes Home Medications: Albuterol Inhaler [Ventolin Inhaler*] 2 puff IH Q6H PRN #2 unit 03/12/24 Aspirin [Aspirin EC 81 MG] 81 mg PO DAILY #90 tab 03/12/24 Atorvastatin Calcium [Lipitor] 40 mg PO BEDTIME #30 tab 03/12/24 Spironolactone [Aldactone] 12.5 mg PO DAILY #45 tab 03/13/24 Torsemide 10 mg PO DAILY #90 tab 03/13/24 - Past Medical/Surgical History Diabetic: No -: Combined Systolic and Diastolic CHF -: HLD Psychosocial/ Personal History: States he does not have a doctor, does not see a doctor, takes no medications, but is not allergic to any known medications - Family History Father Medical History: Diabetes Brother Medical History: Heart disease - Social History Alcohol use: Yes CD- Drugs: No Caffeine use: Yes Place of Residence: Home Review of Systems 10-point ROS is otherwise unremarkable Physical Examination Temp Pulse Resp BP Pulse Ox 97.8 F 87 16 104/55 L 99 04/30/24 11:54 04/30/24 11:54 04/30/24 11:54 04/30/24 11:54 04/30/24 11:54 General: Alert, In no apparent distress HEENT: Atraumatic, PERRLA, Mucous membr. moist/pink, EOMI, Sclerae nonicteric Neck: Supple, 2+ carotid pulse no bruit, No LAD, Without JVD or thyroid abnormality Respiratory: Clear to auscultation bilaterally, Normal air movement Cardiovascular: Regular rate/rhythm, Normal S1 S2 Gastrointestinal: Normal bowel sounds, No tenderness Musculoskeletal: No tenderness Integumentary: No rashes Neurological: Normal gait, Normal speech, Normal tone, Normal affect Lymphatics: No axilla or inguinal lymphadenopathy - Problems (1) Chronic combined systolic and diastolic heart failure Current Visit: Yes Status: Acute Plan: Patient had a recent echo that shows mild reduced LV function with severe , patient looks mild overloaded agree with lasix IV then switch to home dose torsemide. continue spirnolactone continue to monitor input and output and electrolytes (2) Aortic stenosis Current Visit: Yes Status: Acute Plan: advised patient that he will need further work up for his severe and will need to follow up with cardiology in office.
[2024-04-30 13:41] VITALS: BMI 21.9
--- NOTE | 2024-04-30 14:39 | P.PN ---
Date of Service: 04/30/24 Subjective Awake and feeling well on RA, NAD Leukocytosis, will continue to evaluated ROS 10 point ROS as noted above, otherwise negative Physical Exam General: Alert and Oriented x3, Cooperative, NAD HEENT: Atraumatic, PERRLA, MMM Neck: Supple, 2+ carotid pulse no bruit, No LAD, Without JVD or thyroid abnormality Respiratory: Clear to auscultation bilaterally, nonlabored breathing, on RA Cardiovascular: No edema, NSR, Normal S1 S2 Capillary refill: <2 Seconds Gastrointestinal: Normal bowel sounds, Soft and benign on palpation Musculoskeletal: No clubbing, No swelling, No tenderness Integumentary: No rashes Neurological: Normal gait, Normal speech, Normal tone, Normal affect Lymphatics: No axilla or inguinal lymphadenopathy Vitals Reviewed Problem list Acute on chronic systolic and diastolic CHF exacerbation. Acute respiratory failure with hypoxia Acute on chronic COPD exacerbation Hyperlipidemia Lactic acidosis Hx of Severe aortic valve stenosis Anemia of chronic disease Elevated D-dimer Nicotine abuse Assessment and Plan Acute on chronic systolic and diastolic CHF exacerbation. 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
[2024-04-30 17:10] VITALS: BP 105/55
--- NOTE | 2024-05-04 12:25 | EKG ---
Test Date: 2024-04-29 Test Time: 06:57:28 Coroner Forensic Technician: ITA MEASUREMENT RESULTS: Intervals: Rate: 123 CO: 138 QRSD: 90 QT: 324 QTc: 463 [place]: P: 80 CO: 138 QRS: 86 T: 227 INTERPRETIVE STATEMENTS: Sinus tachycardia Left ventricular hypertrophy with repolarization abnormality Abnormal ECG Compared to ECG 03/11/2024 10:34:10 Left ventricular hypertrophy now present Early repolarization now present ST (T wave) deviation no longer present Possible ischemia no longer present Electronically Signed On 05-04-24 12:16:11 BONE CHAR PULLER by Sander Souza
== END 2024-04-30 19:45 | disposition home or self-care (01) | DRG 291 ==
LOC: ER 06:44 → ERHOLD 12:45 → 2ND 19:18
PROVIDERS: ADMIT Hospitalist; ATTEND Hospitalist
PROC: 4A033R1 Measurement of Arterial Saturation, Peripheral, Percutaneous Approach (ICD-10-PCS; principal; 2024-04-29)
PROC: 5A09357 Assistance with Respiratory Ventilation, Less than 24 Consecutive Hours, Continuous Positive Airway Pressure (ICD-10-PCS; 2024-04-29)
DX: I11.0 Hypertensive heart disease with heart failure (principal); I50.43 Acute on chronic combined systolic (congestive) and diastolic (congestive) heart failure; J96.01 Acute respiratory failure with hypoxia; J44.1 Chronic obstructive pulmonary disease with (acute) exacerbation; E87.20 Acidosis, unspecified; E78.5 Hyperlipidemia, unspecified; I35.0 Nonrheumatic aortic (valve) stenosis; D63.8 Anemia in other chronic diseases classified elsewhere; F17.200 Nicotine dependence, unspecified, uncomplicated; Z71.6 Tobacco abuse counseling; Z79.82 Long term (current) use of aspirin; Z79.899 Other long term (current) drug therapy
CPT/HCPCS: 36415; 36600; 71045; 71275; 80048; 80076; 81003; 82550; 82805; 83605; 83690; 83735; 83880; 84100; 84484; 85025; 85379; 85610; 85730; 87040; 93005; 94660; 94760; 99285; J0692; J1644; J1940; J2919; J7050; J7613; J7614; J7644; Q9967

== ENCOUNTER 2024-05-26 07:25 | Inpatient (IN) | payer OTHER ==
--- OUTSIDE RECORDS SUMMARY | 2024-05-26 07:28 | XMS REPORT | Continuity of Care Document ---
Author Name Unknown Address [address] [facility] [address] [place] [address] [facility] Address [address] [facility] [place] [address] Care Team Providers Care Principal Web Developer Name Role Phone [id number] Attending Clinician Unavailable QAMAR GONZALES Attending Clinician Unavailable Payers Payer Name Policy Type Policy Number Effective Date Expirati on Date Source [employer] BENEF[employer] SYS/PPO 2 [id number] 2022 00:00:00 Problems Condition Name Condition Details Condition Category Status Onset Date Resolution Date Last Treatment Date Treating Clinician Comments Source Congestive heart failure (multi HCC) Congestive heart failure (multi HCC) Disease Active 05-08 00:00: 00 Pino Collins - Holgera lisette Chronic obstructiv e pulmonary disease (multi HCC) Chronic obstructiv e pulmonary disease (multi HCC) Disease Active 05-08 00:00: 00 Pino Calvo Externa lisette Mixed hyperlipid emia Mixed hyperlipid emia Disease Active 05-08 00:00: 00 Pino Calvo Externa l Aortic valve stenosis Aortic valve stenosis Disease Active 05-08 00:00: 00 Pino Wrena lisette 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 Active 05-08 00:00: 00 Pino Calvo Externa lisette Social History Social Habit Start Date Stop Date Quantity Comments Source Sexual orientation Lindsey Collins - External History of tobacco use Cigarette Smoker Pino Seyb old - External History of Social function 2024-05-25 00:00:00 2024-05-25 00:00:00 Pino Arcos Cigarettes smoked current (pack per day) - Reported 2024-05-08 00:00:00 2024-05-08 00:00:00 Pino Karina Calvo External Cigarette pack-years 2024-05-08 00:00:00 2024-05-08 00:00:00 Pino Calvo External Sex 2024-05-02 10:55:29 2024-05-02 10:55:29 Male (finding) Pino Calvo External Sex assigned at 1950 00:00:00 1950 00:00:00 Pino Calvo External Smoking Status Start Date Stop Date Source Smokes tobacco daily 2024-05-08 00:00:00 Pino Calvo External Medications Ordered Medication Name Filled Medication Name Start Date Stop Date Current Medication? Ordering Clinician Indication Dosage Frequency Signature (SIG) Comments Components Source Atorvastati n Calcium 40 MG oral Tablet 05-08 00:00: 00 Yes [id number] 40mg Take 1 tablet (40 mg total) by mouth at bedtime. Pino knox Albuterol HFA 108 (90 Base) MCG/ACT IN AERS 03-13 00:00: 00 Yes [id number] TAKE 2 PUFFS BY MOUTH EVERY 6 HOURS NEEDED FOR SHORTNESS OF BREATH Pino knox Spironolact one 25 MG oral Tablet 03-13 00:00: 00 Yes [id number] 9109 TAKE HALF A TABLET BY MOUTH DAILY Pino knox Torsemide 10 MG oral Tablet 03-13 00:00: 00 Yes [id number] 9109 10mg QD Take 1 tablet (10 mg total) by mouth daily. Pino knox Aspirin Low Dose 81 MG oral Tablet Delayed Response 03-13 00:00: 00 Yes [id number] 9109 81mg QD Take 1 tablet (81 mg total) by mouth daily. Pino knox Atorvastati n Calcium 40 MG oral Tablet 03-13 00:00: 00 05-08 00:00 :00 No 40mg Take 1 tablet (40 mg total) by mouth at bedtime. Pino Seybold - Externa l Vital Signs Vital Name Observation Time Observation Value Comments S ource Systolic blood pressure 2024-05-25 16:06:00 120 mm[Hg] Pino Seybo ld - External Diastolic blood pressure 2024-05-25 16:06:00 62 mm[Hg] Pino Seybo ld - External Heart rate 2024-05-25 16:06:00 100 /min Kelse y Seybold - External Body temperature 2024-05-25 16:06:00 37.28 Estefania Pino Seybold - External Respiratory rate 2024-05-25 16:06:00 20 /min Pino Seybold - External Body height 2024-05-25 16:06:00 185.4 cm Ana Cristina ey Seybold - External Body weight 2024-05-25 16:06:00 75.978 kg Ana Cristina ey Seybold - External BMI 2024-05-25 16:06:00 22.10 kg/m2 Ana Cristina ey Seybold - External Oxygen saturation in Arterial blood by Pulse oximetry 2024-05-25 16:06:00 98 /min Pino Lancasterybo ld - External Systolic blood pressure 2024-05-08 15:23:00 130 mm[Hg] Pino Seybo ld - External Diastolic blood pressure 2024-05-08 15:23:00 76 mm[Hg] Pino Lancasterybo ld - External Heart rate 2024-05-08 15:23:00 93 /min Kelse y Seybold - External Body temperature 2024-05-08 15:23:00 35.94 Estefania Pino Seybold - External Respiratory rate 2024-05-08 15:23:00 20 /min Pino Seybold - External Body height 2024-05-08 15:23:00 185.4 cm Ana Cristina ey Seybold - External Body weight 2024-05-08 15:23:00 74.9 kg Ana Cristina ey Seybold - External BMI 2024-05-08 15:23:00 21.79 kg/m2 Ana Cristina ey Seybold - External Oxygen saturation in Arterial blood by Pulse oximetry 2024-05-08 15:23:00 100 /min Pino Nettles ld - External Encounters Start Date/Time End Date/Time Encounter Type Admission Type Attending Clinicians Care Facility Care Department Encounter ID Source 2024-05-25 12:15:00 2024-05-25 12:15:00 Outpatient [id number] [facility] [id number] Pino Collins 2024-05-25 11:30:00 2024-05-25 11:30:00 Outpatient QAMAR GONZALES [facility] [id number] Pino Collins 2024-05-12 00:00:00 2024-05-12 00:00:00 Outpatient GONZALES, QAMAR [facility] [id number] Pino Collins 2024-05-08 09:30:00 2024-05-08 09:30:00 Outpatient JANET QAMAR PRINGLE [id number] Pino Collins Notes Date/Time Note Provider Source 2024-05-25 11:16:49 Chief Complaint Patient presents with Physical HRA-Fasting for labs [facility] 2024-05-08 09:28:28 Chief Complaint Patient presents with Follow-up Hospitalization Hospital after care for SOB. Needs refill on Atorvastatin Sheri Puente LVN [facility]
[2024-05-26 07:51] LABS: Absolute Lymphocytes (CBC) 1.9 K/uL (0.7-4.9); Absolute Monocytes 0.3 K/uL (0.1-1.3); Basophils % 0.3 % (0-1.3); Eosinophils % 0.1 % (0-4.4); Hematocrit 41.4 % (39.6-49.0); Hemoglobin 13.9 g/dL (13.6-17.9); Lymphocytes % 14.5 % (15.3-44.8); MCH 29.8 pg (27.0-35.0); MCHC 33.7 g/dL (32.0-36.0); MCV 88.5 fL (80-100); MPV 11.3 fL (7.6-11.3); Monocytes % 2.4 % (3.3-12.3); Neutrophils % 82.7 % (41.7-73.7); Nucleated Red Blood Cells % 0.1 % (0-0); Platelets 138 thou/uL (152-406); RBC Red Blood Cell Count 4.67 M/uL (4.33-5.43); Red Cell Distribution Width 14.5 % (12.1-15.2)
[2024-05-26 07:55] LABS: PT Prothrombin Time 13.7 SECONDS (10-13.0); Protime INR 1.21
[2024-05-26 08:08] LABS: Albumin 3.8 g/dL (3.4-5.0); Albumin/Globulin Ratio 0.9 (1.1-1.8); Anion Gap 11.4 mEq/L (5.0-15.0); Bilirubin Direct 0.3 mg/dL (0-0.2); Bilirubin Indirect, Calculated 0.7 mg/dL (0.2-0.8); Globulin 4.2 g/dL (2.3-3.5); Magnesium 1.9 mg/dL (1.6-2.4); Potassium 3.4 mEq/L (3.5-5.1)
[2024-05-26] MEDS ORDERED: CEFTRIAXONE 1000 MG/VIAL ONE (08:09)
[2024-05-26] MEDS ORDERED: AZITHROMYCIN 500 MG INJ IVPB ONE (08:09)
[2024-05-26] MEDS ORDERED: NA CHLORIDE 0.9% 250 ML ONE (08:10)
[2024-05-26] MEDS ORDERED: FUROSEMIDE 40 MG/4 ML VIAL ONE (08:10)
[2024-05-26 08:15] LABS: Troponin High Sensitivity 967.2 pg/mL (<58.9)
--- NOTE | 2024-05-26 08:30 | ER ---
Nurse's Notes [facility] Name: Thiago Piper Age: 73 yrs Sex: Male : 1950 Arrival Date: 05/26/2024 Time: 07:25 Bed 3 Private MD: Diagnosis: Heart failure, unspecified;Acute respiratory failure Presentation: 05/26 07:38 Chief complaint: EMS states: toned out to patient home for SOB. SpO2 70% RA. ld1 Coronavirus screen: At this time, the client does not indicate any symptoms associated with coronavirus-19. Ebola Screen: No symptoms or risks identified at this time. Initial Sepsis Screen: Does the patient meet any 2 criteria? RR > 20 per min. HR > 90 bpm. Yes Does the patient have a suspected source of infection? No. Patient's initial sepsis screen is negative. Risk Assessment: Do you want to hurt yourself or someone else? Patient reports no desire to harm self or others. Onset of symptoms was May 26, 2024. 07:38 Method Of Arrival: EMS: [facility] ld1 07:38 Acuity: SORIN 2 ld1 Triage Assessment: 07:38 General: Appears in no apparent distress. comfortable, Behavior is calm, appropriate ld1 for age. Pain: Denies pain. EENT: No signs and/or symptoms were reported regarding the EENT system. Neuro: Level of Consciousness is awake, alert, obeys commands, Oriented to person, place, time, situation, Appropriate for age. Cardiovascular: Capillary refill < 3 seconds Patient's skin is warm and dry. Rhythm is sinus tachycardia. Respiratory: Airway is patent Respiratory effort is even, labored, with nasal flaring, Patient placed on BiPAP: Inspiratory Pressure: 18 Expiratory (EPAP) Pressure: 9 FiO2%: 100 Respiratory Rate: 22 Breath sounds are diminished bilaterally. Onset: The symptoms/episode began/occurred this morning, the patient has severe shortness of breath. Respiratory: Reports shortness of breath at rest on exertion air hunger since this morning. GI: Abdomen is flat, non-distended. : No signs and/or symptoms were reported regarding the genitourinary system. Derm: No signs and/or symptoms reported regarding the dermatologic system. Musculoskeletal: No signs and/or symptoms reported regarding the musculoskeletal system. Historical: - Allergies: 07:37 No Known Allergies; ld1 - Home Meds: 07:37 None [Active]; ld1 - PMHx: 07:37 Congestive heart failure; COPD; Asthma; ld1 - Immunization history:: Adult Immunizations up to date. - Infectious Disease History:: Denies. - Social history:: Smoking status: Patient denies any tobacco usage or history of. Screenin:30 [facility] ED Fall Risk Assessment (Adult) History of falling in the last 3 months, ld1 including since admission No falls in past 3 months (0 pts) Confusion or Disorientation No (0 pts) Intoxicated or Sedated No (0 pts) Impaired Gait No (0 pts) Mobility Assist Device Used No (0 pt) Altered Elimination No (0 pt) Score/Fall Risk Level 0 - 2 = Low Risk Oriented to surroundings, Hourly rounding (assess needs \T\ fall precautionary measures) done. Abuse screen: Denies threats or abuse. Denies injuries from another. Nutritional screening: No deficits noted. Tuberculosis screening: No symptoms or risk factors identified. Assessment: 07:30 Reassessment: RT at bedside. Pt placed on BIPAP. ld1 07:30 Cardiovascular: Capillary refill < 3 seconds Patient's skin is warm and dry. Rhythm is ld1 sinus tachycardia. 07:48 Reassessment: Pt arrived on non rebreather - SpO2 77% on 15L. Pt reports going to bed ld1 last night with minimal cough. Woke up this morning for work and could not breathe. Denies pain. Vital Signs: 07:38 BP 135 / 85; Pulse 140; Temp 98.4(TE); Pulse Ox 99% on BiPAP; Weight 77 kg; Height 5 ld1 ft. 7 in. ; Pain 0/10; 07:47 BP 128 / 79; Pulse 145; Resp 47; ld1 07:58 Pulse 138; Resp 39; Pulse Ox 99% on BiPAP; FiO2 100 %; ld1 08:21 BP 105 / 64; Pulse 133; Resp 35; Pulse Ox 100% on BiPAP; FiO2 100 %; ld1 08:49 BP 143 / 72; Pulse 136; Resp 39; Pulse Ox 99% on BiPAP; FiO2 100 %; ld1 07:38 Body Mass Index 26.59 (77.00 kg, 170.18 cm) ld1 07:38 Pain Scale: Adult ld1 ED Course: 07:26 Patient arrived in ED. ld1 07:27 Jv Arriaga DO is Attending Physician. ms3 07:30 Patient has correct armband on for positive identification. Placed in gown. Bed in low ld1 position. Call light in reach. Side rails up X2. coil wrapper on. Pulse ox on. NIBP on. Door closed. Noise minimized. Warm blanket given. 07:30 No provider procedures requiring assistance completed. ld1 07:36 Kayleen Arriaga, MALENA is Primary Nurse. ld1 07:38 Arm band placed on right wrist. ld1 07:45 Triage completed. ld1 07:48 XRAY Chest (1 view) In Process Unspecified. EDMS 07:48 Inserted saline lock: 18 gauge in left wrist, using aseptic technique. Blood collected. ld1 Flushed with 10 mL NS. 07:58 Blood Culture Adult (2) Sent. ld1 07:58 Lactate w/ 2H reflex if indic. Sent. ld1 07:58 Ptt, Activated Sent. ld1 08:29 Turner Vasquez is Hospitalizing Provider. ms3 08:30 Inserted saline lock: 20 gauge in right forearm, using aseptic technique. Flushed with bc6 10 mL NS. 14:09 Patient admitted, IV remains in place. ld1 Administered Medications: 07:45 Drug: MethylPrednisoLONE IVP 125 mg IVP once Route: IVP; Site: left wrist; ld1 08:15 Follow up: Response: No adverse reaction ld1 07:45 Drug: Albuterol Inhalation 2.5 mg Inhalation every 20 minutes x3 Route: Inhalation; ld1 07:45 Drug: Ipratropium Inhalation Aerosol 0.5 mg Inhalation once Route: Inhalation; ld1 11:03 Follow up: Response: No adverse reaction ld1 08:05 Drug: Albuterol Inhalation 2.5 mg Inhalation every 20 minutes x3 Route: Inhalation; ld1 08:14 Drug: Albuterol Inhalation 2.5 mg Inhalation every 20 minutes x3 Route: Inhalation; ld1 11:03 Follow up: Response: No adverse reaction ld1 08:21 Drug: Rocephin IV 1 grams IV at calculated rate once; Given slow IV push per pharmacy ld1 instructions Route: IV; Rate: calculated rate; Site: left wrist; 11:03 Follow up: IV Status: Completed infusion ld1 08:21 Drug: AZITHromycin IVPB 500 mg IVPB once over 1 hrs; (mix in 250 mL NS) Route: IVPB; ld1 Infused Over: 1 hrs; Site: left wrist; 11:03 Follow up: Response: No adverse reaction; IV Status: Completed infusion; IV Intake: ld1 250ml 08:21 Drug: Furosemide IVP 40 mg IVP once; give over 2 minutes Route: IVP; Site: left wrist; ld1 11:02 Follow up: Response: No adverse reaction ld1 Medication: 07:30 VIS not applicable for this client. ld1 Intake: 11:03 IV: 250ml; Total: 250ml. ld1 Outcome: 08:30 Decision to Hospitalize by Provider. ms3 14:09 Admitted to ER Hold. [facility]. ld1 14:09 Condition: stable 14:09 Instructed on the need for admit, 15:13 Patient left the ED. ld1 Signatures: Dispatcher [employer] EDMS Jv Arriaga DO DO ms3 Kayleen Arriaga RN RN ld1 Susan Santana 6 Corrections: (The following items were deleted from the chart) 07:38 07:37 PMHx: Congenital heart disease; ld1 ld1
--- NOTE | 2024-05-26 08:30 | EDPHYS ---
Physician Documentation [facility] Name: Thiago Piper Age: 73 yrs Sex: Male : 1950 Arrival Date: 05/26/2024 Time: 07:25 Bed 3 Private MD: ED Physician Jv Arriaga HPI: 05/26 12:02 This 73 yrs old Black Male presents to ER via EMS with complaints of Shortness Of ms3 Breath. 12:02 . 73-year-old male with past medical history of congestive heart failure, COPD, asthma ms3 presents to the emergency department via [facility] for shortness of breath. EMS states patient's room air oxygen saturation was 70% on their arrival. They administered albuterol and placed patient on 10 L nonrebreather mask with improvement of patient's saturation to 93%.. Historical: - Allergies: 07:37 No Known Allergies; ld1 - Home Meds: 07:37 None [Active]; ld1 - PMHx: 07:37 Congestive heart failure; COPD; Asthma; ld1 - Immunization history:: Adult Immunizations up to date. - Infectious Disease History:: Denies. - Social history:: Smoking status: Patient denies any tobacco usage or history of. ROS: 12:02 Constitutional: Negative for fever, and chills. Cardiovascular: Negative for chest ms3 pain, and palpitations. Abdomen/GI: Negative for abdominal pain, nausea, vomiting, diarrhea, and constipation, MS/Extremity: Negative for injury and deformity, Skin: Negative for injury, rash, and discoloration, 12:02 Respiratory: Positive for shortness of breath, Exam: 12:02 Constitutional: This is a well developed, well nourished patient who is awake, alert, ms3 and in no acute distress. Cardiovascular: Regular rate and rhythm with a normal S1 and S2. No gallops, murmurs, or rubs. Normal PMI, no JVD. No pulse deficits. Abdomen/GI: Soft, non-tender, with normal bowel sounds. No distension or tympany. No guarding or rebound. No evidence of tenderness throughout. Skin: Warm, dry with normal turgor. Normal color with no rashes, no lesions, and no evidence of cellulitis. MS/ Extremity: Pulses equal, no cyanosis. Neurovascular intact. Full, normal range of motion. 12:02 ECG was reviewed by the Attending Physician. 12:02 Respiratory: severe repiratory distress is noted, Respirations: nasal flaring, intercostal retractions, tachypnea, Breath sounds: decreased breath sounds, that are moderate, are heard in the left posterior upper lobe, right posterior upper lobe, left posterior lower lobe, right posterior middle lobe and right posterior lower lobe, Vital Signs: 07:38 BP 135 / 85; Pulse 140; Temp 98.4(TE); Pulse Ox 99% on BiPAP; Weight 77 kg; Height 5 ld1 ft. 7 in. ; Pain 0/10; 07:47 BP 128 / 79; Pulse 145; Resp 47; ld1 07:58 Pulse 138; Resp 39; Pulse Ox 99% on BiPAP; FiO2 100 %; ld1 08:21 BP 105 / 64; Pulse 133; Resp 35; Pulse Ox 100% on BiPAP; FiO2 100 %; ld1 08:49 BP 143 / 72; Pulse 136; Resp 39; Pulse Ox 99% on BiPAP; FiO2 100 %; ld1 07:38 Body Mass Index 26.59 (77.00 kg, 170.18 cm) ld1 07:38 Pain Scale: Adult ld1 MDM: 07:27 Medical Screening Exam initiated ms3 12:15 Differential diagnosis: CHF exacerbation, Chronic Obstructive Pulmonary Disease ms3 pulmonary edema. Antibiotic administration: Rocephin and Zithromax given. Data reviewed: vital signs, nurses notes, lab test result(s), EKG, radiologic studies, and as a result, I will admit patient. Consideration of Admission/Observation Patient was admitted/placed on observation. Management of patient was discussed with the following: Hospitalist: . I considered the following discharge prescriptions or medication management in the emergency department Medications were administered in the Emergency Department. See MAR. Independent interpretation of the following test(s) in the Emergency Department EKG: See my EKG interpretation above X-Ray: My interpretation is CXR image reviewed by me shows pulmonary edema. Historians other than the Patient: EMS: [facility]. Counseling: I had a detailed discussion with the patient and/or guardian regarding the historical points, exam findings, and any diagnostic results supporting the discharge/admit diagnosis, lab results, radiology results, the need for further work-up and treatment in the hospital. ED course: Patient improved with placement on BiPAP. Lasix ordered for pulmonary edema. Discussed case with hospitalist and accept patient to ICU. Discussed necessity for admission with patient he understands and agrees with plan. 05/26 07:27 Order name: Basic Metabolic Panel; Complete Time: 08:26 ms3 05/26 07:27 Order name: CBC with Diff; Complete Time: 08:03 ms3 05/26 07:27 Order name: LFT's; Complete Time: 08:26 ms3 05/26 07:27 Order name: Magnesium; Complete Time: 08:26 ms3 05/26 07:27 Order name: NT PRO-BNP; Complete Time: 08:26 ms3 05/26 07:27 Order name: PT-INR; Complete Time: 08:03 ms3 05/26 07:27 Order name: Troponin HS; Complete Time: 08:26 ms3 05/26 07:48 Order name: Blood Culture Adult (2) ms3 05/26 07:48 Order name: Lactate w/ 2H reflex if indic.; Complete Time: 08:26 ms3 05/26 07:48 Order name: Ptt, Activated; Complete Time: 08:26 ms3 05/26 08:24 Order name: Ghost Lactate-NO COLLECT Timer; Complete Time: 13:22 EDMS 05/26 09:13 Order name: Creatine Phosphokinase; Complete Time: 13:22 EDMS 05/26 09:13 Order name: Phosphorus; Complete Time: 13:22 EDMS 05/26 09:13 Order name: T4 Free; Complete Time: 13:22 EDMS 05/26 09:13 Order name: Thyroid Stimulating Hormone; Complete Time: 13:22 EDMS 05/26 09:13 Order name: Urinalysis w/ reflexes EDMS 05/26 09:13 Order name: Basic Metabolic Panel EDMS 05/26 09:13 Order name: Basic Metabolic Panel EDMS 05/26 09:13 Order name: CBC with Automated Diff EDMS 05/26 09:13 Order name: CBC with Automated Diff EDMS 05/26 09:13 Order name: Lipid Profile EDMS 05/26 09:13 Order name: Lipid Profile EDMS 05/26 09:15 Order name: Troponin High Sensitivity EDMS 05/26 09:15 Order name: Troponin High Sensitivity EDMS 05/26 09:15 Order name: Troponin High Sensitivity EDMS 05/26 11:23 Order name: Lactate Sepsis 2 HR Follow-up; Complete Time: 13:22 EDMS 05/26 07:27 Order name: BIPAP ms3 05/26 07:27 Order name: XRAY Chest (1 view); Complete Time: 08:53 ms3 05/26 09:08 Order name: CONS Physician Consult EDMS 05/26 07:27 Order name: Cardiac monitoring; Complete Time: 07:36 ms3 05/26 07:27 Order name: EKG - Nurse/Tech; Complete Time: 07:48 ms3 05/26 07:27 Order name: IV Saline Lock; Complete Time: 07:36 ms3 05/26 07:27 Order name: Labs collected and sent; Complete Time: 07:36 ms3 05/26 07:27 Order name: O2 Per Protocol; Complete Time: 07:36 ms3 05/26 07:27 Order name: O2 Sat Monitoring; Complete Time: 07:36 ms3 05/26 07:48 Order name: Accucheck; Complete Time: 07:48 ms3 05/26 07:48 Order name: IV Saline Lock - Large Bore; Complete Time: 07:48 ms3 05/26 07:48 Order name: Vital Signs; Complete Time: 07:48 ms3 05/26 10:55 Order name: Labs - recollect needed: recollect all tubes; Complete Time: 11:02 bd EC:02 Rate is 144 beats/min. Rhythm is regular. QRS Wiseman is Normal. CA interval is normal. ms3 QRS interval is normal. Clinical impression: Sinus tachycardia. Interpreted by me. Reviewed by me. Administered Medications: 07:45 Drug: MethylPrednisoLONE IVP 125 mg IVP once Route: IVP; Site: left wrist; ld1 08:15 Follow up: Response: No adverse reaction ld1 07:45 Drug: Albuterol Inhalation 2.5 mg Inhalation every 20 minutes x3 Route: Inhalation; ld1 07:45 Drug: Ipratropium Inhalation Aerosol 0.5 mg Inhalation once Route: Inhalation; ld1 11:03 Follow up: Response: No adverse reaction ld1 08:05 Drug: Albuterol Inhalation 2.5 mg Inhalation every 20 minutes x3 Route: Inhalation; ld1 08:14 Drug: Albuterol Inhalation 2.5 mg Inhalation every 20 minutes x3 Route: Inhalation; ld1 11:03 Follow up: Response: No adverse reaction ld1 08:21 Drug: Rocephin IV 1 grams IV at calculated rate once; Given slow IV push per pharmacy ld1 instructions Route: IV; Rate: calculated rate; Site: left wrist; 11:03 Follow up: IV Status: Completed infusion ld1 08:21 Drug: AZITHromycin IVPB 500 mg IVPB once over 1 hrs; (mix in 250 mL NS) Route: IVPB; ld1 Infused Over: 1 hrs; Site: left wrist; 11:03 Follow up: Response: No adverse reaction; IV Status: Completed infusion; IV Intake: ld1 250ml 08:21 Drug: Furosemide IVP 40 mg IVP once; give over 2 minutes Route: IVP; Site: left wrist; ld1 11:02 Follow up: Response: No adverse reaction ld1 Disposition Summary: 05/26/24 08:30 Hospitalization Ordered Notes: Hospitalization Status: Inpatient Admission ms3 Provider: Turner Vasquez ms3 Condition: Stable ms3 Problem: new ms3 Symptoms: are unchanged ms3 Bed/Room Type: Standard ms3 Location: Intensive Care Unit(05/26/24 14:16) bd Room Assignment: 3-(05/26/24 14:16) bd Diagnosis - Heart failure, unspecified ms3 - Acute respiratory failure ms3 Forms: - Medication Reconciliation Form ms3 - SBAR form ms3 - Leadership Thank You Letter ms3 Signatures: Dispatcher [employer] EDBreanne Lowe Marcus, DO DO ms3 Kayleen Arriaga RN RN ld1 Chelsea Khan RN RN kb3 Corrections: (The following items were deleted from the chart) 07:28 07:27 BASIC METABOLIC PANEL+C.LAB.BRZ ordered. EDMS EDMS 07:28 07:27 CBC+H.LAB.BRZ ordered. EDMS EDMS 07:28 07:27 HEPATIC FUNCTION+C.LAB.BRZ ordered. EDMS EDMS 07:28 07:28 MAGNESIUM+C.LAB.BRZ ordered. EDMS EDMS 07:28 07:28 PROBNP+C.LAB.BRZ ordered. EDMS EDMS 07:28 07:28 PROTIME (+INR)+COAG.LAB.BRZ ordered. EDMS EDMS 07:28 07:28 Troponin High Sensitivity+C.LAB.BRZ ordered. EDMS EDMS 07:38 07:37 PMHx: Congenital heart disease; ld1 ld1 07:48 07:48 BLOOD CULTURE*+BA.LAB.BRZ ordered. EDMS EDMS 07:48 07:48 LACTATE+C.LAB.BRZ ordered. EDMS EDMS 07:48 07:48 PTT, ACTIVATED+COAG.LAB.BRZ ordered. EDMS EDMS 10:47 08:30 Intensive Care Unit ms3 kb3 10:47 08:30 ms3 kb3 14:16 10:47 [facility] ER HOLD kb3 bd 14:16 10:47 ERHOLD- kb3 bd
--- NOTE | 2024-05-26 08:35 | RAD REPORT ---
Procedure: Chest Single View HISTORY: Shortness of breath COMPARISON: April 2024 FINDINGS: Mild to moderate bilateral pulmonary opacities Small bilateral pleural effusions. Heart is mildly enlarged. IMPRESSION: These findings probably indicate CHF
[2024-05-26] MEDS ORDERED: ACETAMINOPHEN 325 MG TABLET PO PRN (09:09)
[2024-05-26] MEDS ORDERED: HYDROCODONE/APAP 5/325 MG TAB PO PRN (09:09)
[2024-05-26] MEDS ORDERED: ONDANSETRON 4 MG/2 ML VIAL IV PRN (09:09)
--- NOTE | 2024-05-26 09:29 | P.HP ---
Certification for Inpatient Patient admitted to: Inpatient With expected LOS: >2 Midnights Patient will require the following post-hospital care: None Practitioner: I am a practitioner with admitting privileges, knowledge of patient current condition, hospital course, and medical plan of care. Services: Services provided to patient in accordance with Admission requirements found in Title 42 Section 412.3 of the Code of Federal Regulations Patient History Date of Service: 05/26/24 Reason for admission: SOB History of Present Illness: Patient is a 73-year-old male with a past medical history significant for CHF, COPD, asthma who presents with complaint of shortness of breath onset this morning. Patient reported that he started experiencing cough yesterday and today patient developed shortness of breath. Patient denies any other signs and symptoms. Symptoms are aggravated or relieved by nothing. Patient decided to present to the hospital due to worsening symptoms. Allergies No Known Allergies Allergy (Unverified 03/11/24 14:43) Home Medications: Albuterol Inhaler [Ventolin Inhaler*] 2 puff IH Q6H PRN #2 unit 03/12/24 Aspirin [Aspirin EC 81 MG] 81 mg PO DAILY #90 tab 03/12/24 Atorvastatin Calcium [Lipitor] 40 mg PO BEDTIME #30 tab 03/12/24 Spironolactone [Aldactone] 12.5 mg PO DAILY #45 tab 03/13/24 Torsemide 10 mg PO DAILY #90 tab 03/13/24 - Past Medical/Surgical History Diabetic: No -: Combined Systolic and Diastolic CHF -: HLD Past Surgical History: Patient denies surgical history Psychosocial/ Personal History: States he does not have a doctor, does not see a doctor, takes no medications, but is not allergic to any known medications - Family History Father -: Diabetes Brother -: Heart disease - Social History Smoking Status: Never smoker Alcohol use: Yes CD- Drugs: No Caffeine use: Yes Place of Residence: Home Review of Systems General: Unremarkable Eyes: Unremarkable ENT: Unremarkable Respiratory: Cough, Shortness of Breath Cardiovascular: Unremarkable Gastrointestinal: Unremarkable Genitourinary: Unremarkable Musculoskeletal: Unremarkable Integumentary: Unremarkable Neurological: Unremarkable Lymphatics: Unremarkable Physical Examination - Physical Exam General: Alert, In no apparent distress, Oriented x3, Cooperative HEENT: Atraumatic, PERRLA, Mucous membr. moist/pink, EOMI, Sclerae nonicteric Neck: Supple, 2+ carotid pulse no bruit, No LAD, Without JVD or thyroid abnormality Respiratory: Normal air movement, Diminished Cardiovascular: No edema, Normal S1 S2, Irregular heart rate/rhythm Capillary refill: <2 Seconds Gastrointestinal: Normal bowel sounds, No tenderness Musculoskeletal: No clubbing, No swelling, No tenderness Integumentary: No rashes, No breakdown Neurological: Normal gait, Normal speech, Normal strength at 5/5 x4 extr, Normal tone, Normal affect Lymphatics: No axilla or inguinal lymphadenopathy - Studies Laboratory Data (last 24 hrs) 05/26/24 05/26/24 05/26/24 07:40 07:40 07:40 WBC 13.30 H Hgb 13.9 Hct 41.4 Plt Count 138 L PT 13.7 H INR 1.21 APTT 28.6 Sodium Potassium BUN Creatinine Glucose Magnesium Total Bilirubin AST ALT Alkaline Phosphatase 05/26/24 07:40 WBC Hgb Hct Plt Count PT INR APTT Sodium 133 L Potassium 3.4 L BUN 18 Creatinine 1.71 H Glucose 265 H Magnesium 1.9 Total Bilirubin 1.0 AST 20 ALT 20 Alkaline Phosphatase 102 Assessment and Plan - Plan NSTEMI. --Will continue to trend serial troponins trending --Patient placed on heparin drip. -- Sound Ranging Crewmember consulted. Recommendations appreciated. --Telemetry to monitor for any significant arrhythmia. 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 Acute respiratory failure with hypoxia --Continue diuresis with Lasix. --Daily weight and strict I/O. --Continue BiPAP therapy. COPD. Asthma. --Stable. --Continue home medications. Leukocytosis. --Likely reactive. --Blood cultures pending. --Will continue to monitor WBCs. Hyperlipidemia --Continue statin Severe Aortic Valve Stenosis. --Further management per painter and body work. DVT prophylaxis with heparin drip. Discharge Plan: Home - Advance Directives Does patient have a Living Will: No Does patient have a Durable POA for Healthcare: No - Code Status/Comfort Care Code Status Assessed: Yes Physician Review: Patient Assessed, Agree with Above Assessment and Plan Critical Care: No
[2024-05-26 12:31] LABS: Phosphorus 3.1 mg/dL (2.5-4.9); Thyroid Stimulating Hormone 1.36 uIU/mL (0.358-3.740)
--- NOTE | 2024-05-26 13:06 | P.CNS ---
Date of Consult: 05/26/24 Chief Complaint: SOB History of Present Illness: Patient with PMH of heart failure mild reduced EF, severe , presented with worsening SOB, productive cough, denies chest pain, no palpitations, no syncope. Allergies No Known Allergies Allergy (Unverified 03/11/24 14:43) Home medications list reviewed: Yes Home Medications: Albuterol Inhaler [Ventolin Inhaler*] 2 puff IH Q6H PRN #2 unit 03/12/24 Aspirin [Aspirin EC 81 MG] 81 mg PO DAILY #90 tab 03/12/24 Atorvastatin Calcium [Lipitor] 40 mg PO BEDTIME #30 tab 03/12/24 Spironolactone [Aldactone] 12.5 mg PO DAILY #45 tab 03/13/24 Torsemide 10 mg PO DAILY #90 tab 03/13/24 - Past Medical/Surgical History Diabetic: No -: Combined Systolic and Diastolic CHF -: HLD Psychosocial/ Personal History: States he does not have a doctor, does not see a doctor, takes no medications, but is not allergic to any known medications - Family History Father Medical History: Diabetes Brother Medical History: Heart disease - Social History Alcohol use: Yes CD- Drugs: No Caffeine use: Yes Review of Systems 10-point ROS is otherwise unremarkable Physical Examination Temp Pulse Resp BP Pulse Ox 97 H 21 H 84/55 L 99 05/26/24 11:55 05/26/24 11:55 05/26/24 11:55 05/26/24 11:55 General: Alert, In no apparent distress HEENT: Atraumatic, PERRLA, Mucous membr. moist/pink, EOMI, Sclerae nonicteric Neck: Supple, 2+ carotid pulse no bruit, No LAD, Without JVD or thyroid abnormality Respiratory: Clear to auscultation bilaterally, Normal air movement Cardiovascular: Regular rate/rhythm, Normal S1 S2 Gastrointestinal: Normal bowel sounds, No tenderness Musculoskeletal: No tenderness Integumentary: No rashes Neurological: Normal gait, Normal speech, Normal tone, Normal affect Lymphatics: No axilla or inguinal lymphadenopathy Laboratory Data (last 24 hrs) 05/26/24 05/26/24 05/26/24 07:40 07:40 07:40 WBC 13.30 H Hgb 13.9 Hct 41.4 Plt Count 138 L PT 13.7 H INR 1.21 APTT 28.6 Sodium Potassium BUN Creatinine Glucose Magnesium Total Bilirubin AST ALT Alkaline Phosphatase 05/26/24 07:40 WBC Hgb Hct Plt Count PT INR APTT Sodium 133 L Potassium 3.4 L BUN 18 Creatinine 1.71 H Glucose 265 H Magnesium 1.9 Total Bilirubin 1.0 AST 20 ALT 20 Alkaline Phosphatase 102 - Problems (1) Acute on chronic combined systolic and diastolic CHF, NYHA class 3 Current Visit: Yes Status: Acute Plan: increase lasix to 40 mg IV q 8 hours continue to monitor input and output and electrolytes (2) NSTEMI (non-ST elevated myocardial infarction) Current Visit: Yes Status: Acute Plan: start patient on Heparin drip NPO after midnight for coronary angiogram in am. ASA 81 mg daily Lipitor 40 mg daily (3) Aortic stenosis Current Visit: No Status: Acute Plan: outpatient evaluation for TAVR vs surgical valve replacement is in progress.
[2024-05-26] MEDS: HEPARIN/D5W 25,000 UNIT/500 ML BAG IV SCH (17:07)
[2024-05-26] MEDS: FUROSEMIDE 40 MG/4 ML VIAL IV SCH (17:08)
[2024-05-26] MEDS ORDERED: ALBUTEROL INHALER 200 PUFF/6.7 GM IH PRN (22:18)
[2024-05-27] MEDS: FUROSEMIDE 40 MG/4 ML VIAL IV SCH (01:09)
[2024-05-27 05:49] LABS: Absolute Lymphocytes (CBC) 1.1 K/uL (0.7-4.9); Absolute Monocytes 1.1 K/uL (0.1-1.3); Absolute Neutrophil 18.3 K/uL (1.8-8.0); Basophils % 0.2 % (0-1.3); Hematocrit 38.6 % (39.6-49.0); Hemoglobin 13.1 g/dL (13.6-17.9); Lymphocytes % 5.2 % (15.3-44.8); MCH 29.5 pg (27.0-35.0); MCHC 34.1 g/dL (32.0-36.0); MCV 86.6 fL (80-100); MPV 11.8 fL (7.6-11.3); Monocytes % 5.3 % (3.3-12.3); Neutrophils % 89.3 % (41.7-73.7); Platelets 107 thou/uL (152-406); RBC Red Blood Cell Count 4.45 M/uL (4.33-5.43); Red Cell Distribution Width 14.1 % (12.1-15.2)
[2024-05-27 06:05] LABS: Anion Gap 11.7 mEq/L (5.0-15.0); Potassium 3.7 mEq/L (3.5-5.1)
[2024-05-27] MEDS: SPIRONOLACTONE 25 MG TABLET PO SCH (07:58)
[2024-05-27] MEDS: ASPIRIN EC 81 MG TAB PO SCH (07:58)
[2024-05-27] MEDS: POTASSIUM CL SA 10 MEQ TAB PO ONE ×2 (08:02→23:22)
[2024-05-27] MEDS: VANCOMYCIN 1 GM in NA CHLORIDE 0.9% 250 ML IVPB SCH (08:13)
[2024-05-27] MEDS: CEFEPIME 1 GM in NA CHLORIDE 0.9% 100 ML IV SCH (08:28)
[2024-05-27 09:00] LABS: Platelet Estimate DECR; White Blood Cell Scan OK (OK)
[2024-05-27] MEDS: PNEUMOCOCCAL VACCINE 0.5 ML IMVAC ONE (09:00)
[2024-05-27 09:01] LABS: Blood Morphology Comment NOT SEEN (NOT SEEN)
[2024-05-27] MEDS: VANCOMYCIN 1.5 GM in NA CHLORIDE 0.9% 500 ML IVPB SCH (09:05)
[2024-05-27 09:33] LABS: Specific Gravity 1.014 (1.005-1.030); Urine Bilirubin NEGATIVE (Negative); Urine Blood Negative (Negative); Urine Clarity Clear (Clear); Urine Color Colorless (Yellow); Urine Glucose NEGATIVE (Negative); Urine Ketones NEGATIVE (Negative); Urine Microscopic Reflex YN NO UMIC; Urine Nitrite NEGATIVE (Negative); Urine Protein NEGATIVE (Negative); Urine Urobilinogen Normal (Normal); Urine pH 6.5 (5.0-7.0)
[2024-05-27] MEDS ORDERED: HEPA 1000U/500MLS 2,000 UNIT/1,000 ML BAG IV ONE (10:53)
[2024-05-27] MEDS ORDERED: HEPARIN 5000 UNIT/ML 1 ML VIAL ONE (10:53)
[2024-05-27] MEDS ORDERED: LIDOCAINE 1% 20 ML MDV ONE (10:53)
--- NOTE | 2024-05-27 11:26 | P.PN ---
Subjective Date of Service: 05/27/24 Chief Complaint: SOB Subjective: No new changes, No C/O voiced, Tolerating diet, Ambulating, Improving Review of Systems 10-point ROS is otherwise unremarkable Physical Examination - Vital Signs Temperature: 98.0 F Blood Pressure: 102/56 Pulse: 100 Respirations: 28 Pulse Ox (%): 95 - Physical Exam General: Alert, In no apparent distress HEENT: Atraumatic, PERRLA, EOMI Neck: Supple, JVD not distended Respiratory: Clear to auscultation bilaterally, Normal air movement Cardiovascular: Regular rate/rhythm, Normal S1 S2 Gastrointestinal: Normal bowel sounds, No tenderness Musculoskeletal: No tenderness Integumentary: No rashes Neurological: Normal speech, Normal tone, Normal affect Lymphatics: No axilla or inguinal lymphadenopathy - Studies Medications List Reviewed: Yes Assessment And Plan - Current Problems (Diagnosis) (1) Acute on chronic combined systolic and diastolic CHF, NYHA class 3 Current Visit: Yes Status: Acute Plan: continue lasix 40 mg IV q 8 hours continue to monitor input and output and electrolytes (2) NSTEMI (non-ST elevated myocardial infarction) Current Visit: Yes Status: Acute Plan: coronary angiogram today. ASA 81 mg daily Lipitor 40 mg daily continue Heparin drip. (3) Aortic stenosis Current Visit: No Status: Acute Plan: outpatient evaluation for TAVR vs surgical valve replacement is in progress. Physician Review: Patient Assessed, Agree with Above Assessment and Plan
--- NOTE | 2024-05-27 12:29 | EKG ---
Test Date: 2024-05-26 Test Time: 16:01:40 Solid Waste Disposal Manager: ELO MEASUREMENT RESULTS: Intervals: Rate: 88 PA: 160 QRSD: 88 QT: 448 QTc: 542 [place]: P: 70 PA: 160 QRS: 54 T: 151 INTERPRETIVE STATEMENTS: Normal sinus rhythm Left ventricular hypertrophy with repolarization abnormality Prolonged QT Abnormal ECG Compared to ECG 05/26/2024 07:46:04 Prolonged QT interval now present Sinus tachycardia no longer present Electronically Signed On 05-27-24 12:25:34 CDT by Sander Souza
--- NOTE | 2024-05-27 12:32 | EKG ---
Test Date: 2024-05-26 Test Time: 07:46:04 Obstetrics Gynecology Physician: Odin SERRANO MEASUREMENT RESULTS: Intervals: Rate: 144 MS: 140 QRSD: 84 QT: 308 QTc: 476 [place]: P: 69 MS: 140 QRS: 75 T: 123 INTERPRETIVE STATEMENTS: Sinus tachycardia Left ventricular hypertrophy with repolarization abnormality Abnormal ECG Compared to ECG 04/29/2024 06:57:28 No significant changes Electronically Signed On 05-27-24 12:26:21 CDT by Sander Souza
--- NOTE | 2024-05-27 13:00 | P.PN ---
Subjective Date of Service: 05/27/24 Chief Complaint: SOB Patient denies any complaint. He denies any chest pain. Patient blood pressure is fluctuating. No recorded fever. WBC trended up. Patient was taken to the cardiac suite for left heart catheterization but she developed severe orthopnea, the cardiac cath could not be done, patient brought back to the ICU on BiPAP. Physical Examination - Vital Signs Temperature: 98.2 F Blood Pressure: 163/97 Pulse: 130 Respirations: 16 Pulse Ox (%): 98 - Studies Medications List Reviewed: Yes Assessment And Plan - Plan Physical examination General: Alert and oriented x3, NAD, moderate respiratory distress. HEENT: Conjunctiva not pale, anicteric sclera, BiPAP in place. Neck: Supple, no elevated JVD Heart: Heart sounds 1 and 2 normal, regular rhythm, tachycardic, no pedal edema Lungs: Bilateral crackles, adequate breath sounds bilaterally, no rhonchi. Abdomen: Soft, nondistended, nontender, normal bowel sounds. Extremities: No tenderness, no deformity Skin: Normal skin turgor, no rash, no nodules or ulcers. Neuro: No focal motor deficit. Normal speech. Psychiatry: Normal mood, no agitation. Diagnosis NSTEMI Acute on chronic combined systolic and diastolic heart failure Acute respiratory failure with hypoxia COPD and asthma exacerbation Sepsis Plan: NSTEMI Acute on chronic combined systolic and diastolic heart failure Cardiology Dr. Souza input appreciated. Troponin markedly elevated. Cardiology attempted cardiac catheterization today, however patient was severely orthopneic, cardiac catheterization consulted and patient brought back to the ICU on BiPAP. Patient started on Lasix drip. Morphine IV as needed Continue heparin drip Aspirin, Lipitor. Monitor intake and output closely. Titrate oxygen. COPD exacerbation Asthma exacerbation Scheduled bronchodilators Supplemental oxygen. Severe aortic stenosis Cardiology is following Sepsis Lactic acidosis UA is negative for UTI. Patient states he was recently treated for pneumonia Blood cultures: No growth day 1 IV cefepime and vancomycin. Follow blood cultures Monitor CBC to follow leukocytosis. DVT prophylaxis: Heparin SQ Advanced directive: Full code
[2024-05-27] MEDS: MORPHINE 2 MG/ML SYR IV ONE (13:23)
[2024-05-27] MEDS: FUROSEMIDE 100 MG in NA CHLORIDE 0.9% 90 ML IV SCH (13:23)
[2024-05-27 14:04] LABS: Magnesium 1.7 mg/dL (1.6-2.4); Phosphorus 3.7 mg/dL (2.5-4.9)
[2024-05-27] MEDS: ATORVASTATIN 40 MG TAB PO SCH (20:15)
[2024-05-27 22:28] LABS: Anion Gap 10.5 mEq/L (5.0-15.0); Potassium 3.5 mEq/L (3.5-5.1)
[2024-05-27 22:45] LABS: Magnesium 1.8 mg/dL (1.6-2.4); Phosphorus 3.5 mg/dL (2.5-4.9)
[2024-05-27] MEDS: MAGNESIUM SULFATE 1 gm IVPB 1 GM/100 ML BAG IV ONE (23:22)
[2024-05-28 05:59] LABS: Absolute Lymphocytes (CBC) 0.9 K/uL (0.7-4.9); Absolute Monocytes 0.8 K/uL (0.1-1.3); Absolute Neutrophil 11.4 K/uL (1.8-8.0); Basophils % 0.3 % (0-1.3); Hemoglobin 13.5 g/dL (13.6-17.9); Lymphocytes % 6.7 % (15.3-44.8); MCH 29.3 pg (27.0-35.0); MCHC 33.8 g/dL (32.0-36.0); MCV 86.7 fL (80-100); Monocytes % 5.9 % (3.3-12.3); Neutrophils % 87.1 % (41.7-73.7); Platelets 105 thou/uL (152-406); RBC Red Blood Cell Count 4.61 M/uL (4.33-5.43); Red Cell Distribution Width 14.2 % (12.1-15.2)
[2024-05-28 06:14] LABS: Anion Gap 10.3 mEq/L (5.0-15.0); Potassium 3.3 mEq/L (3.5-5.1)
[2024-05-28 07:26] LABS: Magnesium 2.1 mg/dL (1.6-2.4); Phosphorus 3.2 mg/dL (2.5-4.9)
[2024-05-28] MEDS: KCL 20 MEQ/100 mL IVPB 20 MEQ/100 ML BAG IV SCH (08:35)
[2024-05-28] MEDS ORDERED: NA CHLORIDE 0.9% 500 ML ONE (11:11)
[2024-05-28] MEDS ORDERED: HEPARIN 10,000 UNIT/10 ML VIAL IV ONE (11:36)
[2024-05-28] MEDS ORDERED: LIDOCAINE 1% 20 ML MDV ONE (11:36)
[2024-05-28] MEDS ORDERED: HEPA 1000U/500MLS 2,000 UNIT/1,000 ML BAG IV ONE (11:36)
[2024-05-28] MEDS ORDERED: HEPARIN 5000 UNIT/ML 1 ML VIAL ONE (11:37)
[2024-05-28] MEDS ORDERED: ATROPINE SULF 1 MG/10 ML SYR IV ONE (11:37)
--- NOTE | 2024-05-28 13:21 | P.PN ---
Subjective Date of Service: 05/28/24 Chief Complaint: SOB Subjective: No new changes, No C/O voiced, Tolerating diet, Ambulating, Improving Review of Systems 10-point ROS is otherwise unremarkable Physical Examination - Vital Signs Temperature: 98.2 F Blood Pressure: 163/97 Pulse: 130 Respirations: 16 Pulse Ox (%): 98 - Physical Exam General: Alert, In no apparent distress HEENT: Atraumatic, PERRLA, EOMI Neck: Supple, JVD not distended Respiratory: Clear to auscultation bilaterally, Normal air movement Cardiovascular: Regular rate/rhythm, Normal S1 S2 Gastrointestinal: Normal bowel sounds, No tenderness Musculoskeletal: No tenderness Integumentary: No rashes Neurological: Normal speech, Normal tone, Normal affect Lymphatics: No axilla or inguinal lymphadenopathy - Studies Medications List Reviewed: Yes Assessment And Plan - Current Problems (Diagnosis) (1) Acute on chronic combined systolic and diastolic CHF, NYHA class 3 Current Visit: Yes Status: Acute Plan: continue lasix drip at 10 mg/hr, may switch to Lasix 40 mg IV bid in am continue to monitor input and output and electrolytes (2) NSTEMI (non-ST elevated myocardial infarction) Current Visit: Yes Status: Acute Plan: coronary angiogram shows normal coronaries, most likely type 2 PA from CHF and severe . ASA 81 mg daily Lipitor 40 mg daily continue Heparin drip. (3) Aortic stenosis Current Visit: No Status: Acute Plan: outpatient evaluation for TAVR vs surgical valve replacement is in progress. Physician Review: Patient Assessed, Agree with Above Assessment and Plan
--- NOTE | 2024-05-28 13:24 | P.PN ---
Subjective Date of Service: 05/28/24 Chief Complaint: SOB Patient states he feels much better. He reports significant improvement in his shortness of breath. Patient had significant urine output with a Lasix drip. No recorded fever. WBC trended down significantly from yesterday. Patient used BiPAP yesterday. He is currently tolerating oxygen by nasal cannula. Physical Examination - Vital Signs Temperature: 98.2 F Blood Pressure: 163/97 Pulse: 130 Respirations: 16 Pulse Ox (%): 98 - Studies Medications List Reviewed: Yes Assessment And Plan - Plan Physical examination General: Alert and oriented x3, NAD. Neck: Supple, no elevated JVD Heart: Heart sounds 1 and 2 normal, regular rhythm, tachycardic, no pedal edema Lungs: Bilateral crackles, adequate breath sounds bilaterally, no rhonchi. Abdomen: Soft, nondistended, nontender, normal bowel sounds. Extremities: No tenderness, no deformity Skin: Normal skin turgor, no rash, no nodules or ulcers. Neuro: No focal motor deficit. Normal speech. Psychiatry: Normal mood, no agitation. Diagnosis NSTEMI Acute on chronic combined systolic and diastolic heart failure Acute respiratory failure with hypoxia COPD and asthma exacerbation Sepsis Plan: NSTEMI Acute on chronic combined systolic and diastolic heart failure Cardiology Dr. Souza input appreciated. Troponin markedly elevated. Cardiology attempted cardiac catheterization today, however patient was severely orthopneic, cardiac catheterization consulted and patient brought back to the ICU on BiPAP. Patient started on Lasix drip. Morphine IV as needed Continue heparin drip Aspirin, Lipitor. Monitor intake and output closely. Titrate oxygen. 05/28 Patient respiratory status significantly improved. Off BiPAP to oxygen by nasal cannula Significant urine output with Lasix drip. Patient plan for cardiac catheterization today. Status post IV heparin drip. Continue aspirin, Lipitor Wean oxygen as tolerated. COPD exacerbation Asthma exacerbation Scheduled bronchodilators Supplemental oxygen. Severe aortic stenosis Cardiology is following Sepsis Lactic acidosis UA is negative for UTI. Patient states he was recently treated for pneumonia Blood cultures: No growth day 1 IV cefepime and vancomycin. Follow blood cultures Monitor CBC to follow leukocytosis. 05/28 Blood cultures shows no growth to date Leukocytosis trended down significantly. Continue IV cefepime and vancomycin for now. DVT prophylaxis: Heparin SQ Advanced directive: Full code
[2024-05-28] MEDS: POTASSIUM 25 MEQ EFFERV TAB PO ONE ×2 (14:02→22:08)
[2024-05-28 18:25] VITALS: BMI 22.6
[2024-05-28] MEDS ORDERED: FUROSEMIDE 100 MG in NA CHLORIDE 0.9% 90 ML IV SCH (20:00)
[2024-05-28] MEDS: NA CHLORIDE 0.9% 100 ML ONE (20:23)
[2024-05-28] MEDS: CEFEPIME 2 GM VIAL ONE (20:32)
[2024-05-28] MEDS: CEFEPIME 2 GM in NA CHLORIDE 0.9% 100 ML IV SCH (20:43)
[2024-05-28] MEDS: POTASSIUM 25 MEQ EFFERV TAB ONE (21:58)
[2024-05-29] MEDS: FUROSEMIDE 100 MG in NA CHLORIDE 0.9% 90 ML IV SCH (02:00)
[2024-05-29 06:05] LABS: Absolute Monocytes 0.7 K/uL (0.1-1.3); Basophils % 0.2 % (0-1.3); Eosinophils % 0.1 % (0-4.4); Hematocrit 39.4 % (39.6-49.0); Hemoglobin 13.4 g/dL (13.6-17.9); Lymphocytes % 14.9 % (15.3-44.8); MCH 29.9 pg (27.0-35.0); MCV 87.8 fL (80-100); MPV 11.1 fL (7.6-11.3); Monocytes % 10.4 % (3.3-12.3); Neutrophils % 74.4 % (41.7-73.7); Nucleated Red Blood Cells % 0.1 % (0-0); Platelets 97 thou/uL (152-406); RBC Red Blood Cell Count 4.48 M/uL (4.33-5.43); Red Cell Distribution Width 13.9 % (12.1-15.2)
[2024-05-29 06:17] LABS: Anion Gap 6.5 mEq/L (5.0-15.0); Magnesium 2.2 mg/dL (1.6-2.4); Potassium 3.5 mEq/L (3.5-5.1)
[2024-05-29] MEDS: POTASSIUM CL SA 10 MEQ TAB PO ONE (08:08)
--- NOTE | 2024-05-29 14:21 | P.PN ---
Subjective Date of Service: 05/29/24 Chief Complaint: SOB Patient denies any complaints today. He is tolerating room air with good oxygen saturation. Patient has intermittent hypotension today. No recorded fever. Physical Examination - Vital Signs Temperature: 97.4 F Blood Pressure: 90/62 Pulse: 84 Respirations: 22 Pulse Ox (%): 93 - Studies Medications List Reviewed: Yes Assessment And Plan - Plan Physical examination General: Alert and oriented x3, NAD. Neck: Supple, no elevated JVD Heart: Heart sounds 1 and 2 normal, regular rhythm, tachycardic, no pedal edema Lungs: Bilateral crackles, adequate breath sounds bilaterally, no rhonchi. Abdomen: Soft, nondistended, nontender, normal bowel sounds. Extremities: No tenderness, no deformity Skin: Normal skin turgor, no rash, no nodules or ulcers. Neuro: No focal motor deficit. Normal speech. Psychiatry: Normal mood, no agitation. Diagnosis NSTEMI Acute on chronic combined systolic and diastolic heart failure Acute respiratory failure with hypoxia COPD and asthma exacerbation Sepsis Plan: NSTEMI Acute on chronic combined systolic and diastolic heart failure Cardiology following Troponin markedly elevated. Cardiology attempted cardiac catheterization on 05/27, however patient was severely orthopneic, cardiac catheterization consulted and patient brought back to the ICU on BiPAP. Patient started on Lasix drip. Morphine IV as needed Continue heparin drip Aspirin, Lipitor. Monitor intake and output closely. Titrate oxygen. 05/28 Patient respiratory status significantly improved. Off BiPAP to oxygen by nasal cannula Significant urine output with Lasix drip. Patient plan for cardiac catheterization today. Status post IV heparin drip. Continue aspirin, Lipitor Wean oxygen as tolerated. COPD exacerbation Asthma exacerbation Scheduled bronchodilators Supplemental oxygen. Severe aortic stenosis Cardiology is following Sepsis Lactic acidosis UA is negative for UTI. Patient states he was recently treated for pneumonia Blood cultures: No growth day 1 IV cefepime and vancomycin. Follow blood cultures Monitor CBC to follow leukocytosis. 05/28 Blood cultures shows no growth to date Leukocytosis trended down significantly. Continue IV cefepime and vancomycin for now. 05/29 Respiratory status significantly improved, patient is tolerating room air. IV Lasix drip transition to oral Lasix Transferred from ICU to the medical floor. Blood cultures yielded no growth, UA negative for UTI Chest x-ray showed no significant evidence of pneumonia. Change IV antibiotics to oral Levaquin for now Continue to monitor CBC. Increase activity as tolerated. Cardiology is following. DVT prophylaxis: Heparin SQ Advanced directive: Full code
[2024-05-29 15:41] LABS: Magnesium 2.2 mg/dL (1.6-2.4)
[2024-05-29 16:10] VITALS: O2SAT 92
--- NOTE | 2024-05-29 16:52 | PN ---
Date of Progress Note: 05/29/2024 Subjective: The patient was seen by bedside. He is doing well, lying flat. No shortness of breath. Denies having any chest pain. Review of Systems: No chest pain, shortness of breath, orthopnea, cough. No nausea, vomiting, diarrhea. All other syst ems reviewed are negative. Physical Examination: Vital signs: Reviewed. Head and Neck: Pupils are equal and reactive to light. Intact eye movements. No JVD. No cervical lymphadenopathy. Neck is supple. Thyroid is not enlarged. Lungs: Clear to auscultation bilaterally. No rhonchi, wheezing, or crackles. No accessory muscle u se. Heart: Regular rate and rhythm with aortic systolic ejection murmur. Abdomen: Soft, nontender. Bowel sounds positive. No organomegaly. No masses or hernia. No rigidi ty or rebound. Extremities: No edema, clubbing, cyanosis. Intact pulses. Skin: No rash. Neuro: Alert, awake, oriented x3. No acute focal deficits appreciated. Investigations: BUN 30, creatinine 1.26. NT troponin was peaked at 2200. Assessment/recommendation: 1. Acute on chronic congestive heart failure exacerbation. Recommend to switch to oral Lasix 40 mg t wice a day and transfer to the floor. Monitor for 24 hours in preparation for discharge. 2. appears to be severe and valve replacement process is in place. He will follow up with me in t he office next week and we will arrange for this to be replaced. 3. Dyslipidemia, on statin. Continue current management. 4. Elevated troponin, this is demand ischemia. The patient had normal coronaries and left heart cath eterization. SR/MODL Voice ID: [id number] Report ID: [id number]
[2024-05-29] MEDS: FUROSEMIDE 40 MG TABLET PO SCH (20:51)
[2024-05-30 04:02] VITALS: TEMP 99
[2024-05-30 05:48] LABS: Absolute Lymphocytes (CBC) 1.4 K/uL (0.7-4.9); Absolute Monocytes 0.8 K/uL (0.1-1.3); Absolute Neutrophil 3.5 K/uL (1.8-8.0); Basophils % 0.4 % (0-1.3); Eosinophils % 0.4 % (0-4.4); Hematocrit 37.9 % (39.6-49.0); Hemoglobin 13.1 g/dL (13.6-17.9); Lymphocytes % 24.1 % (15.3-44.8); MCH 30.1 pg (27.0-35.0); MCHC 34.7 g/dL (32.0-36.0); MCV 86.9 fL (80-100); MPV 11.9 fL (7.6-11.3); Monocytes % 14.2 % (3.3-12.3); Neutrophils % 60.9 % (41.7-73.7); Nucleated Red Blood Cells % 0.2 % (0-0); Platelets 90 thou/uL (152-406); RBC Red Blood Cell Count 4.36 M/uL (4.33-5.43); Red Cell Distribution Width 14.1 % (12.1-15.2)
[2024-05-30 06:11] LABS: Anion Gap 8.9 mEq/L (5.0-15.0); Potassium 3.9 mEq/L (3.5-5.1)
[2024-05-30 06:24] LABS: Magnesium 2.2 mg/dL (1.6-2.4); Phosphorus 3.3 mg/dL (2.5-4.9)
[2024-05-30] MEDS: levoFLOXacin 750 MG TAB PO SCH (08:07)
[2024-05-30] MEDS: POTASSIUM 25 MEQ EFFERV TAB PO ONE (08:07)
[2024-05-30 08:32] LABS: Blood Morphology Comment NOT SEEN (NOT SEEN); Platelet Estimate DECR; White Blood Cell Scan OK (OK)
[2024-05-30] MEDS ORDERED: FUROSEMIDE 40 MG TABLET PO SCH (09:00)
[2024-05-30 12:06] VITALS: BP 94/63
--- NOTE | 2024-05-30 13:24 | P.DS ---
Admission Date: 05/26/24 Discharge Date: 05/30/24 Disposition: ROUTINE DISCHARGE Discharge Condition: FAIR Reason for Admission: SOB Brief History of Present Illness: Patient is a 73-year-old man with a past medical history significant for CHF, COPD, asthma who presents with complaint of shortness of breath onset this morning. Patient was evaluated in the ED after x-ray showed findings consistent with heart failure. Initial troponin also significantly elevated. Patient started on heparin drip and admitted to the ICU for further management. Hospital Course: Diagnosis NSTEMI Acute on chronic combined systolic and diastolic heart failure Acute respiratory failure with hypoxia COPD and asthma exacerbation Sepsis Patient admitted to the ICU and ongoing medical problems addressed: Plan: NSTEMI Acute on chronic combined systolic and diastolic heart failure Acute respiratory failure with hypoxia Cardiology following Troponin markedly elevated. Cardiology attempted cardiac catheterization on 05/27, however patient was severely orthopneic, cardiac catheterization consulted and patient brought back to the ICU on BiPAP. Patient treated with Lasix drip, heparin drip, aspirin and Lipitor. Cardiac cath was done after patient became well compensated for CHF. Cardiac cath showed normal coronary arteries. Patient noted to have severe aortic stenosis. 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 Patient was initially requiring oxygen. He was eventually weaned off oxygen to room air. He has been tolerating room air at rest and with activity. COPD exacerbation Asthma exacerbation Patient treated with scheduled bronchodilators He was weaned off oxygen to room air. Severe aortic stenosis Follow-up with cardiology as outpatient Sepsis Lactic acidosis UA is negative for UTI. Patient states he was recently treated for pneumonia Blood cultures: No growth day. Patient treated with IV cefepime and vancomycin and transition to oral Levaquin. Leukocytosis resolved. Vital Signs/Physical Exam: Temp Pulse Resp BP Pulse Ox 99.0 F 76 22 H 94/63 93 05/30/24 04:00 05/30/24 12:00 05/30/24 12:00 05/30/24 12:00 05/30/24 12:00 General: Alert, In no apparent distress, Oriented x3 HEENT: Mucous membr. moist/pink Neck: Supple, JVD not distended Respiratory: Clear to auscultation bilaterally, Normal air movement Cardiovascular: No edema, Regular rate/rhythm, Normal S1 S2 Gastrointestinal: Normal bowel sounds, Soft and benign, Non-distended Musculoskeletal: No swelling Integumentary: No rashes, No cyanosis Neurological: Normal strength at 5/5 x4 extr Laboratory Data at Discharge: WBC 5.80 thou/uL (4.3-10.9) 05/30/24 05:08 Hgb 13.1 g/dL (13.6-17.9) L 05/30/24 05:08 Hct 37.9 % (39.6-49.0) L 05/30/24 05:08 Plt Count 90 thou/uL (152-406) L 05/30/24 05:08 PT 13.7 SECONDS (10-13.0) H 05/26/24 07:40 INR 1.21 05/26/24 07:40 APTT Cancelled 05/28/24 08:00 Sodium 134 mEq/L (136-145) L 05/30/24 05:08 Potassium 3.9 mEq/L (3.5-5.1) 05/30/24 05:08 BUN 30 mg/dL (7-18) H 05/30/24 05:08 Creatinine 1.09 mg/dL (0.70-1.30) 05/30/24 05:08 Glucose 167 mg/dL (74-106) H 05/30/24 05:08 Phosphorus 3.3 mg/dL (2.5-4.9) 05/30/24 05:08 Magnesium 2.2 mg/dL (1.6-2.4) 05/30/24 05:08 Total Bilirubin 1.0 mg/dL (0.2-1.0) 05/26/24 07:40 AST 20 U/L (15-37) 05/26/24 07:40 ALT 20 U/L (16-61) 05/26/24 07:40 Alkaline Phosphatase 102 U/L (45-117) 05/26/24 07:40 Triglycerides 51 mg/dL (<150) 05/27/24 05:11 Cholesterol 113 mg/dL (<200) 05/27/24 05:11 HDL Cholesterol 41 mg/dL (40-60) 05/27/24 05:11 Cholesterol/HDL Ratio 2.76 05/27/24 05:11 Home Medications: Albuterol Inhaler [Ventolin Inhaler*] 2 puff IH Q6H PRN #2 unit 03/12/24 Aspirin [Aspirin EC 81 MG] 81 mg PO DAILY #90 tab 03/12/24 Atorvastatin Calcium [Lipitor] 40 mg PO BEDTIME #30 tab 03/12/24 Spironolactone [Aldactone] 12.5 mg PO DAILY #45 tab 03/13/24 Furosemide [Lasix*] 40 mg PO BID #60 tab 05/30/24 levoFLOXacin [Levaquin*] 750 mg PO DAILY #6 tab 05/30/24 New Medications: Furosemide [Lasix*] 40 mg PO BID #60 tab levoFLOXacin [Levaquin*] 750 mg PO DAILY #6 tab Diet: AHA Activity: Ad ida Followup: NONE,NONE [Primary Care Provider] - Time spent managing pt's care (in minutes): 42
--- NOTE | 2024-06-01 13:18 | OP ---
Date of Procedure: 05/28/2024 Surgeon: Sander Souza Procedures Performed: 1. Selective coronary angiogram. 2. Left heart catheterization. Indications For Procedure: [id number]-CI-[id number] FL, heart failure with severe aortic stenosis. Complications: None. Estimated Blood Loss: Less than 50 cc. Access: Right radial, closed by TR band. Sedation Time: 20 minutes with 1 of Versed and 25 of fentanyl. Description Of Procedure: After risks, benefits, and alternatives were explained to the patient, the patient agreed to proceed with procedure and signed informed consent. The patient was brought back to the home performance laborer, prepped and draped in sterile fashion. Time-out was performed. Sedation was admini stered. Next, right radial access was obtained using ultrasound-guided micropuncture technique. Tig er 4 catheter was advanced over a J-wire to the LV cavity. LVEDP was obtained. Pullback did show si gnificant gradient of 80 mmHg. The same catheter was used for selective angiogram of the left and ri t coronary systems. At the end of procedure, catheter was removed over a J-wire. Sheath was remov ed. TR band was applied. Hemostasis was achieved. The patient was moved back to recovery in stable condition. Findings: 1. Left main, normal. 2. LAD, normal. 3. Left circ, normal. 4. RCA, normal. 5. LVEDP, 10 mmHg. 6. Pullback peak to peak gradient is 80 mmHg. Assessment: 1. Normal coronaries. 2. Mild elevated filling pressures. 3. Severe aortic stenosis. Plan: The plan will be to continue heart failure treatment with outpatient TAVR versus surgical valv e evaluation. ALBERTO/ZAKIA Voice ID: [id number] Report ID: [id number]
== END 2024-05-30 14:30 | disposition home or self-care (01) | DRG 871 ==
LOC: ER 07:25 → ERHOLD 09:05 → 3RD-ICU 14:44
PROVIDERS: ADMIT Internal Medicine; ATTEND Internal Medicine
PROC: 5A09457 Assistance with Respiratory Ventilation, 24-96 Consecutive Hours, Continuous Positive Airway Pressure (ICD-10-PCS; 2024-05-26)
PROC: 4A023N7 Measurement of Cardiac Sampling and Pressure, Left Heart, Percutaneous Approach (ICD-10-PCS; principal; 2024-05-28)
PROC: B2111ZZ Fluoroscopy of Multiple Coronary Arteries using Low Osmolar Contrast (ICD-10-PCS; 2024-05-28)
DX: A41.9 Sepsis, unspecified organism (principal); I21.A1 Myocardial infarction type 2; I50.43 Acute on chronic combined systolic (congestive) and diastolic (congestive) heart failure; J96.01 Acute respiratory failure with hypoxia; J44.1 Chronic obstructive pulmonary disease with (acute) exacerbation; J45.901 Unspecified asthma with (acute) exacerbation; E87.20 Acidosis, unspecified; E78.5 Hyperlipidemia, unspecified; I35.0 Nonrheumatic aortic (valve) stenosis; Z79.82 Long term (current) use of aspirin; Z79.899 Other long term (current) drug therapy
CPT/HCPCS: 36415; 71045; 76937; 80048; 80061; 80076; 80202; 81003; 82550; 83605; 83735; 83880; 84100; 84132; 84439; 84443; 84484; 85025; 85610; 85730; 87040; 93005; 93458; 94660; 94760; 96365; 96366; 96368; 96375; 99285; C1893; J0461; J0692; J0696; J1644; J1940; J2003; J2270; J3370; J3475; J3480; J7040; J7050; Q9966

== ENCOUNTER 2024-06-19 00:40 | Emergency (ER) | payer OTHER ==
--- OUTSIDE RECORDS SUMMARY | 2024-06-19 00:43 | XMS REPORT | Continuity of Care Document ---
Author Name Unknown Address [address] [facility] [facility] [place] [address] [facility] Address [address] [facility] [address] [place] [address] Care Team Providers Care Dental Sales Representative Name Role Phone No, PCP Attending Clinician Unavailable QAMAR GONZALES Attending Clinician Unavailable [id number] Attending Clinician Unavailable Payers Payer Name Policy Type Policy Number Effective Date Expirati on Date Source [employer] S[employer]/PPO 2 [id number] 2022 00:00:00 Problems Condition Name Condition Details Condition Category Status Onset Date Resolution Date Last Treatment Date Treating Clinician Comments Source Congestive heart failure (multi HCC) Congestive heart failure (multi HCC) Disease Active 05-08 00:00: 00 Niecy knox Chronic obstructiv e pulmonary disease (multi HCC) Chronic obstructiv e pulmonary disease (multi HCC) Disease Active 05-08 00:00: 00 Niecy Wrena lisette Mixed hyperlipid emia Mixed hyperlipid emia Disease Active 05-08 00:00: 00 Niecy Calvo Externa lisette Aortic valve stenosis Aortic valve stenosis Disease Active 05-08 00:00: 00 Niecy Wrena lisette 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 Active 05-08 00:00: 00 Niecy Wrena lisette Social History Social Habit Start Date Stop Date Quantity Comments Source Sexual orientation Lindsey Collins - External History of tobacco use Cigarette Smoker Niecy Seyb old - External History of Social function 2024-05-25 00:00:00 2024-05-25 00:00:00 Niecy Karina Lubna Josselyn Cigarettes smoked current (pack per day) - Reported 2024-05-08 00:00:00 2024-05-08 00:00:00 Niecy Lancasteradelaida Calvo Josselyn Cigarette pack-years 2024-05-08 00:00:00 2024-05-08 00:00:00 Niecy Lancasteradelaida - External Sex 2024-05-02 10:55:29 2024-05-02 10:55:29 Male (finding) Niecy Lancasteradelaida Lubna Arcos Sex assigned at 1950 00:00:00 1950 00:00:00 Niecy Karina Arcos Smoking Status Start Date Stop Date Source Smokes tobacco daily 2024-05-08 00:00:00 Niecy Karina Arcos Medications Ordered Medication Name Filled Medication Name Start Date Stop Date Current Medication? Ordering Clinician Indication Dosage Frequency Signature (SIG) Comments Components Source Atorvastati n Calcium 40 MG oral Tablet 05-08 00:00: 00 Yes [id number] 40mg Take 1 tablet (40 mg total) by mouth at bedtime. Niecy knox Albuterol HFA 108 (90 Base) MCG/ACT IN AERS 03-13 00:00: 00 Yes [id number] TAKE 2 PUFFS BY MOUTH EVERY 6 HOURS NEEDED FOR SHORTNESS OF BREATH Niecy knox Spironolact one 25 MG oral Tablet 03-13 00:00: 00 Yes [id number] 9109 TAKE HALF A TABLET BY MOUTH DAILY Niecy knox Torsemide 10 MG oral Tablet 03-13 00:00: 00 Yes [id number] 9109 10mg QD Take 1 tablet (10 mg total) by mouth daily. Niecy knox Aspirin Low Dose 81 MG oral Tablet Delayed Response 03-13 00:00: 00 Yes [id number] 9109 81mg QD Take 1 tablet (81 mg total) by mouth daily. Niecy knox Atorvastati n Calcium 40 MG oral Tablet 03-13 00:00: 00 05-08 00:00 :00 No 40mg Take 1 tablet (40 mg total) by mouth at bedtime. Niecy Lancasterybold - Externa l Vital Signs Vital Name Observation Time Observation Value Comments S lalit Systolic blood pressure 2024-05-25 16:06:00 120 mm[Hg] Niecy Lancasterybo ld - External Diastolic blood pressure 2024-05-25 16:06:00 62 mm[Hg] Niecy Lancasterybo ld - External Heart rate 2024-05-25 16:06:00 100 /min Josephse y Seybold - External Body temperature 2024-05-25 16:06:00 37.28 Estefania Niecy Seybold - External Respiratory rate 2024-05-25 16:06:00 20 /min Niecy Lancasterybold - External Body height 2024-05-25 16:06:00 185.4 cm Ana Cristina ey Seybold - External Body weight 2024-05-25 16:06:00 75.978 kg Ana Cristina ey Seybold - External BMI 2024-05-25 16:06:00 22.10 kg/m2 Ana Cristina ey Seybold - External Oxygen saturation in Arterial blood by Pulse oximetry 2024-05-25 16:06:00 98 /min Niecy Lancasterybo ld - External Systolic blood pressure 2024-05-08 15:23:00 130 mm[Hg] Niecy Lancasterybo ld - External Diastolic blood pressure 2024-05-08 15:23:00 76 mm[Hg] Niecy Lancasterybo ld - External Heart rate 2024-05-08 15:23:00 93 /min Josephse y Seybold - External Body temperature 2024-05-08 15:23:00 35.94 Estefania Niecy Seybold - External Respiratory rate 2024-05-08 15:23:00 20 /min Niecy Seybold - External Body height 2024-05-08 15:23:00 185.4 cm Ana Cristina ey Seybold - External Body weight 2024-05-08 15:23:00 74.9 kg Ana Cristina ey Seybold - External BMI 2024-05-08 15:23:00 21.79 kg/m2 Ana Cristina ey Seybold - External Oxygen saturation in Arterial blood by Pulse oximetry 2024-05-08 15:23:00 100 /min Niecy Nettles ld - External Encounters Start Date/Time End Date/Time Encounter Type Admission Type Attending Clinicians Care Facility Care Department Encounter ID Source 2024-06-08 09:31:01 Outpatient No, PCP [facility] [id number] [facility] 2024-06-04 08:08:00 Outpatient No, PCP [facility] [id number] [facility] 2024-05-29 00:00:00 2024-05-29 00:00:00 Outpatient GONZALESQAMAR DEVRIES [id number] [facility] 2024-05-25 12:15:00 2024-05-25 12:15:00 Outpatient [id number] NIECY PRINGLE [id number] [facility] 2024-05-25 11:30:00 2024-05-25 11:30:00 Outpatient GONZALES, QAMAR PRINGLE [id number] Niecy Collins 2024-05-12 00:00:00 2024-05-12 00:00:00 Outpatient GONZALES, QAMAR PRINGLE [id number] Niecy adelaida 2024-05-08 09:30:00 2024-05-08 09:30:00 Outpatient QAMAR GONZLAES [id number] Niecy Collins Notes Date/Time Note Provider Source 2024-05-25 11:16:49 Chief Complaint Patient presents with Physical HRA-Fasting for labs Sheri Puente LVN [facility] 2024-05-08 09:28:28 Chief Complaint Patient presents with Follow-up Hospitalization Hospital after care for SOB. Needs refill on Atorvastatin Sheri Puente LVN [facility]
[2024-06-19 02:09] LABS: Absolute Eosinophils 0.1 K/uL (0-0.5); Absolute Lymphocytes (CBC) 1.5 K/uL (0.7-4.9); Absolute Monocytes 0.7 K/uL (0.1-1.3); Absolute Neutrophil 7.1 K/uL (1.8-8.0); Basophils % 0.4 % (0-1.3); Hematocrit 31.8 % (39.6-49.0); Lymphocytes % 15.9 % (15.3-44.8); MCH 29.6 pg (27.0-35.0); MCHC 34.6 g/dL (32.0-36.0); MCV 85.5 fL (80-100); MPV 9.8 fL (7.6-11.3); Neutrophils % 75.7 % (41.7-73.7); Nucleated Red Blood Cells % 0.1 % (0-0); PT Prothrombin Time 12.2 SECONDS (10-13.0); Platelets 180 thou/uL (152-406); Protime INR 1.07; RBC Red Blood Cell Count 3.72 M/uL (4.33-5.43); Red Cell Distribution Width 14.4 % (12.1-15.2)
[2024-06-19 02:20] LABS: Albumin 3.3 g/dL (3.4-5.0); Anion Gap 9.4 mEq/L (5.0-15.0); Bilirubin Direct 0.2 mg/dL (0-0.2); Bilirubin Indirect, Calculated 0.2 mg/dL (0.2-0.8); Bilirubin Total 0.4 mg/dL (0.2-1.0); Globulin 3.4 g/dL (2.3-3.5); Magnesium 1.7 mg/dL (1.6-2.4); Potassium 4.4 mEq/L (3.5-5.1); Protein, Total 6.7 g/dL (6.4-8.2)
[2024-06-19 02:25] LABS: Troponin High Sensitivity 286.8 pg/mL (<58.9)
--- NOTE | 2024-06-19 02:28 | ER ---
Nurse's Notes [facility] Name: Thiago Piper Age: 73 yrs Sex: Male : 1950 Arrival Date: 06/19/2024 Time: 00:40 Bed 3 Private MD: Diagnosis: Chest pain, NSTEMI Presentation: 06/19 01:12 Chief complaint: Patient states: BEGAN HAVING CHEST PRESSURE AT 7PM AND WENT TO BED. dd2 REPORTS HE WOKE UP WHEEZING. Coronavirus screen: At this time, the client does not indicate any symptoms associated with coronavirus-19. Ebola Screen: No symptoms or risks identified at this time. Initial Sepsis Screen: Does the patient meet any 2 criteria? No. Patient's initial sepsis screen is negative. Does the patient have a suspected source of infection? No. Patient's initial sepsis screen is negative. Risk Assessment: Do you want to hurt yourself or someone else? Patient reports no desire to harm self or others. Onset of symptoms was June 18, 2024 at 19:00. 01:12 Method Of Arrival: Ambulatory dd2 01:12 Acuity: SORIN 3 dd2 Triage Assessment: 01:14 General: Appears in no apparent distress. comfortable, Behavior is calm, cooperative, dd2 appropriate for age. Pain: Denies pain. Complains of pain in chest Pain does not radiate. Pain currently is 0 out of 10 on a pain scale. Quality of pain is described as pressure. EENT: No deficits noted. No signs and/or symptoms were reported regarding the EENT system. Neuro: No deficits noted. [place] Agitation-Sedation Scale (RASS): 0 - Alert and Calm Level of Consciousness is awake, alert, obeys commands, Oriented to person, place, time, situation, Appropriate for age. Cardiovascular: Reports CHEST PRESSURE Heart tones S1 S2 present JVD is absent Patient's skin is warm and dry. Respiratory: Reports DIFFICULTY BREATHING Airway is patent Respiratory effort is even, unlabored, Respiratory pattern is regular, symmetrical. GI: No deficits noted. No signs and/or symptoms were reported involving the gastrointestinal system. Abdomen is non-distended. : No deficits noted. No signs and/or symptoms were reported regarding the genitourinary system. Derm: No deficits noted. No signs and/or symptoms reported regarding the dermatologic system. Skin is healthy with good turgor, Skin is dry, Skin is normal, Skin temperature is warm. Musculoskeletal: No deficits noted. No signs and/or symptoms reported regarding the musculoskeletal system. Circulation, motion, and sensation intact. Range of motion: intact in all extremities. Historical: - Allergies: 01:14 No Known Allergies; dd2 - PMHx: 01:14 Asthma; Congestive heart failure; COPD; dd2 - PSHx: 01:14 None; dd2 - Immunization history:: Adult Immunizations up to date. - Infectious Disease History:: Denies. - Social history:: Smoking status: Patient/guardian denies using tobacco, but has a distant history of tobacco abuse. Screenin:43 [facility] ED Fall Risk Assessment (Adult) History of falling in the last 3 months, lg3 including since admission No falls in past 3 months (0 pts) Confusion or Disorientation No (0 pts) Intoxicated or Sedated No (0 pts) Impaired Gait No (0 pts) Mobility Assist Device Used No (0 pt) Altered Elimination No (0 pt) Score/Fall Risk Level 0 - 2 = Low Risk Oriented to surroundings, Maintained a safe environment, Educated pt \T\ family on fall prevention, incl call for assistance when getting out of bed, Assessed \T\ reinforced patient's understanding of fall precautions. Abuse screen: Denies threats or abuse. Denies injuries from another. Nutritional screening: No deficits noted. Tuberculosis screening: No symptoms or risk factors identified. Assessment: :43 General: Appears in no apparent distress. comfortable, Behavior is calm, cooperative. lg3 Pain: Denies pain. Pain began chest pressure last night that has resolved. Neuro: No deficits noted. [place] Agitation-Sedation Scale (RASS): 0 - Alert and Calm Level of Consciousness is awake, alert, obeys commands, Oriented to person, place, time, situation. Cardiovascular: No deficits noted. Reports shortness of breath. Respiratory: No deficits noted. Reports shortness of breath at rest Airway is patent Respiratory effort is even, unlabored, Respiratory pattern is regular, symmetrical, Breath sounds are clear bilaterally. GI: No deficits noted. No signs and/or symptoms were reported involving the gastrointestinal system. : No signs and/or symptoms were reported regarding the genitourinary system. EENT: No deficits noted. No signs and/or symptoms were reported regarding the EENT system. Derm: No deficits noted. No signs and/or symptoms reported regarding the dermatologic system. Skin is intact, is healthy with good turgor, Skin is dry, Skin is normal, Skin temperature is warm. Musculoskeletal: No deficits noted. No signs and/or symptoms reported regarding the musculoskeletal system. Circulation, motion, and sensation intact. Range of motion: intact in all extremities. 02:41 Reassessment: Patient appears in no apparent distress at this time. Patient and/or bm8 family updated on plan of care and expected duration. Pain level reassessed. Patient is alert, oriented x 3, equal unlabored respirations, skin warm/dry/pink. Patient denies pain at this time. Pain: Denies pain. 02:52 General: Appears distressed, uncomfortable, Behavior is anxious, restless. Pain: Denies lg3 pain. Neuro: [place] Agitation-Sedation Scale (RASS): +1 Restless Level of Consciousness is awake, alert, obeys commands. Cardiovascular: Reports shortness of breath. Respiratory: Reports shortness of breath air hunger labored breathing Airway is patent Respiratory effort is labored, gasping, Respiratory pattern is tachypnea Breath sounds with crackles bilaterally. Derm: Skin is diaphoretic. 03:28 General: Appears in no apparent distress. comfortable, Behavior is calm, cooperative. lg3 Pain: Denies pain. Neuro: No deficits noted. [place] Agitation-Sedation Scale (RASS): 0 - Alert and Calm Level of Consciousness is awake, alert, obeys commands, Oriented to person, place, time, situation. Cardiovascular: Denies chest pain. Respiratory: Reports shortness of breath Airway is patent Respiratory effort is even, unlabored, Respiratory pattern is symmetrical, tachypnea. 03:58 Reassessment: Patient appears in no apparent distress at this time. Patient and/or bm8 family updated on plan of care and expected duration. Pain level reassessed. Patient is alert, oriented x 3, equal unlabored respirations, skin warm/dry/pink. pt appears much more relaxed on bipap. Patient denies pain at this time. Patient states feeling better. Patient states symptoms have improved. 03:58 Respiratory: Patient placed on BiPAP: Inspiratory Pressure: 14 Expiratory (EPAP) bm8 Pressure: 8 FiO2%: 70 Respiratory Rate: 24. 04:59 General: Pt transferred to [facility]. bm8 Vital Signs: 01:12 BP 133 / 84; Pulse 89; Resp 17; Temp 98.8; Pulse Ox 97% on R/A; Weight 80.29 kg (M); lg3 Height 6 ft. 1 in. ; Pain 0/10; 02:34 BP 121 / 78; Pulse 84; Resp 16; Pulse Ox 96% on R/A; dd2 02:41 BP 121 / 78; Pulse 96; Resp 24; Temp 98.8; Pulse Ox 96% ; Pain 0/10; bm8 02:52 BP 173 / 91; Pulse 109; Resp 22 S; Pulse Ox 84% on R/A; lg3 03:05 BP 215 / 120; Pulse 144; Resp 31; Pulse Ox 96% on Non-rebreather mask; lg3 03:12 BP 188 / 87; Pulse 123; Resp 27; Pulse Ox 88% on Non-rebreather mask; lg3 03:16 BP 170 / 113; Pulse 121; Resp 26; Pulse Ox 96% on 15 lpm Non-rebreather mask; lg3 03:19 BP 149 / 77; Pulse 129; Resp 25; Pulse Ox 97% on Non-rebreather mask; lg3 03:24 BP 134 / 71; Pulse 125; Resp 31; Pulse Ox 98% on Non-rebreather mask; lg3 03:58 BP 111 / 74; Pulse 103; Resp 29; Temp 98.8; Pulse Ox 100% on BiPAP; Pain 0/10; bm8 04:21 BP 105 / 70; Pulse 95; Resp 23; Temp 98.8; Pulse Ox 100% on BiPAP; Pain 0/10; bm8 01:12 Body Mass Index 23.35 (80.29 kg, 185.42 cm) lg3 01:12 Pain Scale: Adult lg3 02:41 Pain Scale: Adult bm8 03:58 Pain Scale: Adult bm8 04:21 Pain Scale: Adult bm8 Joan Coma Score: 02:41 Eye Response: spontaneous(4). Motor Response: obeys commands(6). Verbal Response: bm8 oriented(5). Total: 15. 03:58 Eye Response: spontaneous(4). Motor Response: obeys commands(6). Verbal Response: bm8 oriented(5). Total: 15. 04:21 Eye Response: spontaneous(4). Motor Response: obeys commands(6). Verbal Response: bm8 oriented(5). Total: 15. ED Course: 00:43 Patient arrived in ED. [id number] 00:44 Herbert Stewart MD is Attending Physician. sp3 01:14 Triage completed. dd2 01:14 Arm band placed on right wrist. dd2 01:43 Patient has correct armband on for positive identification. Placed in gown. Bed in low lg3 position. Call light in reach. Side rails up X 1. Client placed on continuous cardiac and pulse oximetry monitoring. NIBP monitoring applied. environmental monitoring technician on. Door closed. Noise minimized. Warm blanket given. Pillow given. 01:43 EKG done, by ED staff, reviewed by Herbert Stewart MD. Patient maintains SpO2 saturation lg3 greater than 95% on room air. 01:52 Inserted saline lock: 22 gauge in right forearm, using aseptic technique. Blood oe collected. Flushed with 10 mL NS. 01:53 Basic Metabolic Panel Sent. oe 01:53 CBC with Diff Sent. oe 01:53 LFT's Sent. oe 01:53 Magnesium Sent. oe 01:53 NT PRO-BNP Sent. oe 01:53 PT-INR Sent. oe 01:53 Troponin HS Sent. oe 01:58 XRAY Chest (1 view) In Process Unspecified. EDMS 02:34 EKG done, by ED staff, reviewed by Herbert Stewart MD. dd2 02:41 No provider procedures requiring assistance completed. bm8 02:53 Oxygen administration via non-rebreather mask \T\ 15L/min. lg3 03:13 Inserted saline lock: 20 gauge in left forearm, using aseptic technique. Blood lg3 collected. Flushed with 10 mL NS. 03:25 XRAY Chest (1 view) In Process Unspecified. EDMS 03:57 Otf Abrams, RN is Primary Nurse. bm8 03:58 Provided Education on: need for transfer. bm8 04:59 Patient transferred, IV remains in place. bm8 Administered Medications: 02:41 Drug: Aspirin PO 325 mg PO once Route: PO; bm8 03:29 Follow up: Response: No adverse reaction lg3 02:41 Drug: Furosemide IVP 40 mg IVP once; give over 2 minutes Route: IVP; Site: right bm8 antecubital; 03:29 Follow up: Response: No adverse reaction lg3 03:00 Drug: Nitroglycerin Sublingual 0.4 mg Sublingual once; every five minute if needed x3 lg3 Route: Sublingual; 03:08 Drug: Nitroglycerin Sublingual 0.4 mg Sublingual once; every five minute if needed x3 lg3 Route: Sublingual; 04:00 Follow up: Response: No adverse reaction bm8 03:12 Drug: Nitroglycerin IV 5 mcg/min IV at calculated rate See Administration Instructions; lg3 Standard concentration 50mg/250mL; Recommended max rate 200 mcg/min; max rate for Angina 400mcg/min; Titrate 5 mcg/min q5min to achieve goal (see titration policy); Goal parameter SBP less than 160 bpm or resolution of chest pain; low-sorbing IV tubing. Route: IV; Rate: calculated rate; Site: right antecubital; 05:01 Follow up: Response: No adverse reaction; IV Status: Infusion continued upon transfer bm8 03:25 Drug: Heparin (NV-Bolus No thrombolytic) - HEParin IVP 60 units/kg IVP once; Max 5000 lg3 units {Co-Signature: dd2 (ALEN JONES RN).} Route: IVP; Site: left forearm; 03:29 Follow up: Response: No adverse reaction lg3 03:26 Drug: Heparin (NV Drip) 12 units/kg/hr - ([place] [address] units, D5W IV 500 ml) IV at lg3 calculated rate Per protocol; Max initial rate 1000 units/hr {Co-Signature: dd2 (ALEN JONES RN).} Route: IV; Rate: calculated rate; Site: left forearm; 05:01 Follow up: Response: No adverse reaction; IV Status: Infusion continued upon transfer bm8 Medication: 02:41 VIS not applicable for this client. bm8 Outcome: 02:27 ER care complete, transfer ordered by MD. gonzales 04:57 Transfer[place] to [facility] [place]. X-rays sent w/ bm8 patient. 04:57 Condition: stable 04:57 Instructed on the need for transfer, Demonstrated understanding of instructions, follow-up care, medications, 05:00 Patient left the ED. bm8 Signatures: Dispatcher [employer] EDMS Joel Jimenez Lacie RN RN lg3 Herbert Stewart MD MD sp3 Johana Arroyo [email or web address] Otf Abrams RN RN bm8 ALEN JONES RN RN dd2 ALEN JONES RN dd2 Corrections: (The following items were deleted from the chart) 03:18 02:52 Respiratory: Reports shortness of breath at rest Breath sounds with crackles lg3 bilaterally. lg3 03:20 01:12 BP 133 / 84; Pulse 89bpm; Resp 17bpm; Pulse Ox 97% RA; Temp 98.8F; 71.67 kg; lg3 Height 6 ft. 1 in.; BMI: 20.8; Pain 0/10, Adult; dd2 03:28 02:52 Respiratory: Reports shortness of breath at rest Breath sounds with crackles lg3 bilaterally. lg3 03:28 02:52 General: Appears distressed, uncomfortable, Behavior is anxious, restless, lg3 lg3 03:28 02:52 Neuro: [place] Agitation-Sedation Scale (RASS): +1 Restless lg3 lg3
--- NOTE | 2024-06-19 02:28 | EDPHYS ---
Physician Documentation [facility] Name: Thiago Piper Age: 73 yrs Sex: Male : 1950 Arrival Date: 06/19/2024 Time: 00:40 Bed 3 Private MD: ED Physician Herbert Stewart HPI: 06/19 02:00 This 73 yrs old Black Male presents to ER via Ambulatory with complaints of Chest sp3 Pressure, Breathing Difficulty. 02:00 73-year-old male with history of asthma, congestive heart failure, COPD now presents to [facility] the ED with chief complaint chest discomfort that awoke him from sleep. He also states he has a mild cough and is slightly short of breath. He cannot ascertain whether this is more emphysema versus CHF. His PCP is in [place]. He denies headache, neck pain, fever, known sick contacts, back pain, abdominal pain, nausea, vomiting, diarrhea, syncope, near syncope, focal neurological deficit, bleeding, rash, or any other signs or symptoms on ROS at this time.. Historical: - Allergies: 01:14 No Known Allergies; dd2 - PMHx: 01:14 Asthma; Congestive heart failure; COPD; dd2 - PSHx: 01:14 None; dd2 - Immunization history:: Adult Immunizations up to date. - Infectious Disease History:: Denies. - Social history:: Smoking status: Patient/guardian denies using tobacco, but has a distant history of tobacco abuse. ROS: 02:01 Constitutional: Negative for fever, chills, and weight loss, Eyes: Negative for injury, sp3 pain, redness, and discharge, ENT: Negative for injury, pain, and discharge, Neck: Negative for injury, pain, and swelling, Abdomen/GI: Negative for abdominal pain, nausea, vomiting, diarrhea, and constipation, Back: Negative for injury and pain, MS/Extremity: Negative for injury and deformity, Skin: Negative for injury, rash, and discoloration, Neuro: Negative for headache, weakness, numbness, tingling, and seizure, Psych: Negative for depression, anxiety, suicide ideation, homicidal ideation, and hallucinations, Allergy/Immunology: Negative for hives, rash, and allergies, Endocrine: Negative for neck swelling, polydipsia, polyuria, polyphagia, and marked weight changes, Hematologic/Lymphatic: Negative for swollen nodes, abnormal bleeding, and unusual bruising, 02:01 All other systems are negative, Exam: 02:01 Constitutional: This is a well developed, well nourished patient who is awake, alert, sp3 and in no acute distress. Head/Face: Normocephalic, atraumatic. Eyes: Pupils equal round and reactive to light, extra-ocular motions intact. Lids and lashes normal. Conjunctiva and sclera are non-icteric and not injected. Cornea within normal limits. Periorbital areas with no swelling, redness, or edema. Neck: Trachea midline, no thyromegaly or masses palpated, and no cervical lymphadenopathy. Supple, full range of motion without nuchal rigidity, or vertebral point tenderness. No Meningismus. Chest/axilla: Normal chest wall appearance and motion. Nontender with no deformity. No lesions are appreciated. Cardiovascular: Regular rate and rhythm with a normal S1 and S2. No gallops, murmurs, or rubs. Normal PMI, no JVD. No pulse deficits. Abdomen/GI: Soft, non-tender, with normal bowel sounds. No distension or tympany. No guarding or rebound. No evidence of tenderness throughout. Back: No spinal tenderness. No costovertebral tenderness. Full range of motion. Skin: Warm, dry with normal turgor. Normal color with no rashes, no lesions, and no evidence of cellulitis. MS/ Extremity: Pulses equal, no cyanosis. Neurovascular intact. Full, normal range of motion. Neuro: Awake and alert, GCS 15, oriented to person, place, time, and situation. Cranial nerves II-XII grossly intact. Motor strength 5/5 in all extremities. Sensory grossly intact. Cerebellar exam normal. Normal gait. Psych: Awake, alert, with orientation to person, place and time. Behavior, mood, and affect are within normal limits. 02:01 Respiratory: Scattered wheeze noted., 02:27 ECG was reviewed by the Attending Physician. EKG demonstrates normal sinus rhythm at 88 sp3 bpm with normal intervals, normal QRS, poor R wave progression, left ventricular hypertrophy and nonspecific diffuse ST/T changes. Vital Signs: 01:12 BP 133 / 84; Pulse 89; Resp 17; Temp 98.8; Pulse Ox 97% on R/A; Weight 80.29 kg (M); lg3 Height 6 ft. 1 in. ; Pain 0/10; 02:34 BP 121 / 78; Pulse 84; Resp 16; Pulse Ox 96% on R/A; dd2 02:41 BP 121 / 78; Pulse 96; Resp 24; Temp 98.8; Pulse Ox 96% ; Pain 0/10; bm8 02:52 BP 173 / 91; Pulse 109; Resp 22 S; Pulse Ox 84% on R/A; lg3 03:05 BP 215 / 120; Pulse 144; Resp 31; Pulse Ox 96% on Non-rebreather mask; lg3 03:12 BP 188 / 87; Pulse 123; Resp 27; Pulse Ox 88% on Non-rebreather mask; lg3 03:16 BP 170 / 113; Pulse 121; Resp 26; Pulse Ox 96% on 15 lpm Non-rebreather mask; lg3 03:19 BP 149 / 77; Pulse 129; Resp 25; Pulse Ox 97% on Non-rebreather mask; lg3 03:24 BP 134 / 71; Pulse 125; Resp 31; Pulse Ox 98% on Non-rebreather mask; lg3 03:58 BP 111 / 74; Pulse 103; Resp 29; Temp 98.8; Pulse Ox 100% on BiPAP; Pain 0/10; bm8 04:21 BP 105 / 70; Pulse 95; Resp 23; Temp 98.8; Pulse Ox 100% on BiPAP; Pain 0/10; bm8 01:12 Body Mass Index 23.35 (80.29 kg, 185.42 cm) lg3 01:12 Pain Scale: Adult lg3 02:41 Pain Scale: Adult bm8 03:58 Pain Scale: Adult bm8 04:21 Pain Scale: Adult bm8 Joan Coma Score: 02:41 Eye Response: spontaneous(4). Motor Response: obeys commands(6). Verbal Response: bm8 oriented(5). Total: 15. 03:58 Eye Response: spontaneous(4). Motor Response: obeys commands(6). Verbal Response: bm8 oriented(5). Total: 15. 04:21 Eye Response: spontaneous(4). Motor Response: obeys commands(6). Verbal Response: bm8 oriented(5). Total: 15. MDM: 01:16 Medical Screening Exam initiated sp3 02:01 Data reviewed: vital signs, nurses notes, lab test result(s), EKG, radiologic studies. sp3 ED course: 73-year-old male with PMH above now with chest discomfort and shortness of breath. Patient in no acute distress with normal vital signs. Differential diagnosis includes acute coronary syndrome, CHF, COPD, other upper respiratory infection, among others. Workup will include EKG, chest x-ray and general labs and supportive care with disposition pending workup and patient course.. 02:34 ED course: Repeat EKG demonstrates J-point elevation in V3 with concave up without sp3 signs of ST elevation RI or reciprocal changes. Patient not having active chest pain. We will go ahead and transfer patient due to us not having director of cardiac cath lab. Patient received aspirin and Lasix.. 03:36 ED course: During the middle of transfer, patient went into acute respiratory distress sp3 and flash pulmonary edema. I was called into the room to find patient in tripod position with blood pressure over 220 systolic. Patient was immediately placed into bed 3 after repeat EKG and multiple EKGs were performed during the course of the next 30 minutes. Patient was started on nitro drip, with three 500 mcg boluses in addition to the 2 sublingual nitroglycerin he received prior to the IV doses. RI dose heparin bolus as well as drip also started. Patient now with blood pressure 134/71 and much improved from a respiratory standpoint. Patient still tachycardic. Blood gas after patient was improved demonstrates 7.22 pH with pCO2 of 56 and pO2 of 142. Will start BiPAP to assist in oxygenation and respiratory load. Patient upgraded to ICU and I discussed case with ICU physician Dr. Stewart as well as hospitalist Dr. Packer at [facility] who has graciously accepted this patient.. 04:10 ED course: Patient much more comfortable on BiPAP with heart rate now at 103 and blood sp3 pressure 111/74. Patient still on 3 mcg/min of nitroglycerin and heparin drip as well. Pulse oxygenation 100%. [facility] not available due to weather and patient will be sent via ground to [facility] [place].. 06/19 01:28 Order name: Basic Metabolic Panel; Complete Time: 02:25 sp3 06/19 01:28 Order name: CBC with Diff; Complete Time: 02: sp3 06/19 01:28 Order name: LFT's; Complete Time: 02:25 sp3 06/19 01:28 Order name: Magnesium; Complete Time: 02:25 sp3 06/19 01:28 Order name: NT PRO-BNP; Complete Time: 02:25 sp3 06/19 01:28 Order name: PT-INR; Complete Time: 02:25 sp3 06/19 01:28 Order name: Troponin HS; Complete Time: 02:25 sp3 06/19 03:11 Order name: Troponin High Sensitivity; Complete Time: 04:10 lg3 06/19 03:11 Order name: BNP; Complete Time: 04:10 lg3 06/19 03:38 Order name: ABG Arterial Blood Gas; Complete Time: 04:10 EDMS 06/19 01:28 Order name: XRAY Chest (1 view); Complete Time: 04:10 sp3 06/19 03:09 Order name: XRAY Chest (1 view); Complete Time: 04:10 rv1 06/19 03:34 Order name: BIPAP sp3 06/19 01:28 Order name: Cardiac monitoring; Complete Time: 01:46 sp3 06/19 01:28 Order name: EKG - Nurse/Tech; Complete Time: 01:46 sp3 06/19 01:28 Order name: IV Saline Lock; Complete Time: 01:53 sp3 06/19 01:28 Order name: Labs collected and sent; Complete Time: 01:53 sp3 06/19 01:28 Order name: O2 Per Protocol; Complete Time: 01:46 sp3 06/19 01:28 Order name: O2 Sat Monitoring; Complete Time: 01:46 sp3 Administered Medications: 02:41 Drug: Aspirin PO 325 mg PO once Route: PO; bm8 03:29 Follow up: Response: No adverse reaction lg3 02:41 Drug: Furosemide IVP 40 mg IVP once; give over 2 minutes Route: IVP; Site: right bm8 antecubital; 03:29 Follow up: Response: No adverse reaction lg3 03:00 Drug: Nitroglycerin Sublingual 0.4 mg Sublingual once; every five minute if needed x3 lg3 Route: Sublingual; 03:08 Drug: Nitroglycerin Sublingual 0.4 mg Sublingual once; every five minute if needed x3 lg3 Route: Sublingual; 04:00 Follow up: Response: No adverse reaction bm8 03:12 Drug: Nitroglycerin IV 5 mcg/min IV at calculated rate See Administration Instructions; lg3 Standard concentration 50mg/250mL; Recommended max rate 200 mcg/min; max rate for Angina 400mcg/min; Titrate 5 mcg/min q5min to achieve goal (see titration policy); Goal parameter SBP less than 160 bpm or resolution of chest pain; low-sorbing IV tubing. Route: IV; Rate: calculated rate; Site: right antecubital; 05:01 Follow up: Response: No adverse reaction; IV Status: Infusion continued upon transfer bm8 03:25 Drug: Heparin (RI-Bolus No thrombolytic) - HEParin IVP 60 units/kg IVP once; Max 5000 lg3 units {Co-Signature: dd2 (ALEN JONES RN).} Route: IVP; Site: left forearm; 03:29 Follow up: Response: No adverse reaction lg3 03:26 Drug: Heparin (RI Drip) 12 units/kg/hr - ([place] [address] units, D5W IV 500 ml) IV at lg3 calculated rate Per protocol; Max initial rate 1000 units/hr {Co-Signature: dd2 (ALEN JONES RN).} Route: IV; Rate: calculated rate; Site: left forearm; 05:01 Follow up: Response: No adverse reaction; IV Status: Infusion continued upon transfer 8 Disposition: 03:45 Critical Care:. sp3 Disposition Summary: 06/19/24 02:27 Transfer Ordered Notes: Transfer Location: [facility] sp3 Reason: Higher level of care sp3 Condition: Stable sp3 Problem: an acute exacerbation sp3 Symptoms: have worsened sp3 Accepting Physician: JAYLYN(06/19/24 05:00) bm8 Diagnosis - Chest pain, NSTEMI sp3 Forms: - Medication Reconciliation Form sp3 - SBAR form sp3 Critical care time excluding procedures: 03:45 Critical care time: Bedside Care: 20 minutes, Consultation: 10 minutes, Family sp3 Intervention: 10 minutes. Total time: 40 minutes Signatures: Dispatcher [employer] Meli Luis RN RN lg3 Herbert Stewart MD MD sp3 Otf Abrams RN RN bm8 ALEN JONES RN RN dd2 ALEN JONES RN dd2 Corrections: (The following items were deleted from the chart) : 01:28 BASIC METABOLIC PANEL+C.LAB.BRZ ordered. EDMS EDMS : 01:28 CBC+H.LAB.BRZ ordered. EDMS EDMS : 01:28 HEPATIC FUNCTION+C.LAB.BRZ ordered. EDMS EDMS : 01:28 MAGNESIUM+C.LAB.BRZ ordered. EDMS EDMS : 01:28 PROBNP+C.LAB.BRZ ordered. EDMS EDMS 01:28 PROTIME (+INR)+COAG.LAB.BRZ ordered. EDMS EDMS : 01:28 Troponin High Sensitivity+C.LAB.BRZ ordered. EDMS EDMS 01:29 Chest Single View+RAD.RAD.BRZ ordered. EDMS EDMS 05:00 02:27 TBD sp3 bm8
[2024-06-19] MEDS ORDERED: FUROSEMIDE 40 MG/4 ML VIAL ONE (02:36)
[2024-06-19] MEDS ORDERED: ASPIRIN 325 MG TAB ONE (02:36)
[2024-06-19] MEDS ORDERED: IPRATROPIUM BROM 0.5MG/2.5ML ONE (02:55)
[2024-06-19] MEDS ORDERED: ALBUTEROL 2.5 MG/3 ML NEB SOL ONE (02:55)
[2024-06-19] MEDS ORDERED: NITROGLYCERIN 0.4 MG/TAB SL ONE (02:59)
[2024-06-19] MEDS ORDERED: NITROGLYCERIN/D5W 50 MG/250 ML BTL IV ONE (03:08)
[2024-06-19] MEDS ORDERED: HEPARIN 5000 UNIT/ML 1 ML VIAL ONE ×2 (03:20→03:23)
[2024-06-19] MEDS ORDERED: HEPARIN/D5W 25,000 UNIT/500 ML BAG IV ONE (03:20)
--- NOTE | 2024-06-19 03:49 | RAD REPORT ---
EXAMINATION: ONE VIEW CHEST XR CLINICAL INDICATION: Male, 73 years old.,SOB TECHNIQUE: Frontal chest projection is submitted. Examination is limited by patient positioning and t echnique. COMPARISON: 06/19/2024 FINDINGS: Progressive central interstitial prominence and perihilar fluffy opacities. Trace effusion along the right minor fissure. No pneumothorax or sizable effusion. The heart is normal in size. Mediastinal contours are unremarkable. IMPRESSION: Findings suggestive of worsening pulmonary edema as above.
--- NOTE | 2024-06-19 03:50 | RAD REPORT ---
EXAMINATION: ONE VIEW CHEST XR CLINICAL INDICATION: Male, 73 years old.,Chest pain;Dyspnea TECHNIQUE: Frontal chest projection is submitted. Examination is limited by patient positioning and t echnique. COMPARISON: 05/26/2024 FINDINGS: Partial improvement of central interstitial prominence and fluffy opacities. No pneumothorax or siza ble effusion. The heart is normal in size. Mediastinal contours are unremarkable. IMPRESSION: Improving changes of pulmonary edema as above.
[2024-06-19 04:02] LABS: Troponin High Sensitivity 646.7 pg/mL (<58.9)
[2024-06-19 04:06] LABS: Arterial Blood Carboxyhemoglob 0.7 % (0-1.5); Blood Gas Oxyhemoglobin 95.2 % (94-97); Blood O2 Saturation 97.5 % (92-98.5)
[2024-06-19 04:07] LABS: Blood Gas THB 12.6 g/dl (12-18)
[2024-06-19 05:29] VITALS: TEMP 98.8
[2024-06-19 05:39] VITALS: O2SAT 100
[2024-06-19 05:41] VITALS: BP 105/70
--- NOTE | 2024-06-19 14:14 | EKG ---
Test Date: 2024-06-19 Test Time: 03:16:40 Palm Gatherer: EDIN MEASUREMENT RESULTS: Intervals: Rate: 119 RI: 138 QRSD: 82 QT: 324 QTc: 455 [place]: P: 68 RI: 138 QRS: 56 T: 86 INTERPRETIVE STATEMENTS: Sinus tachycardia Left ventricular hypertrophy with repolarization abnormality Abnormal ECG Compared to ECG 06/19/2024 03:07:05 No significant changes Electronically Signed On 06-19-24 14:12:26 CDT by Sander Souza
--- NOTE | 2024-06-19 14:14 | EKG ---
Test Date: 2024-06-19 Test Time: 01:41:46 Appliance Tester: EDIN MEASUREMENT RESULTS: Intervals: Rate: 88 MS: 160 QRSD: 86 QT: 392 QTc: 474 [place]: P: 72 MS: 160 QRS: 73 T: -14 INTERPRETIVE STATEMENTS: Normal sinus rhythm Left ventricular hypertrophy with repolarization abnormality Abnormal ECG Compared to ECG 05/26/2024 16:01:40 Prolonged QT interval no longer present Electronically Signed On 06-19-24 14:12:30 CDT by Sander Souza
--- NOTE | 2024-06-19 14:14 | EKG ---
Test Date: 2024-06-19 Test Time: 02:31:48 Bail Bond Agent: EDIN MEASUREMENT RESULTS: Intervals: Rate: 86 [place]: 154 QRSD: 84 QT: 398 QTc: 476 [place]: P: 80 [place]: 154 QRS: 78 T: 71 INTERPRETIVE STATEMENTS: Normal sinus rhythm Left ventricular hypertrophy with repolarization abnormality Abnormal ECG Compared to ECG 06/19/2024 01:41:46 No significant changes Electronically Signed On 06-19-24 14:12:29 CDT by Sander Souza
--- NOTE | 2024-06-19 14:14 | EKG ---
Test Date: 2024-06-19 Test Time: 03:07:05 Bid Clerk: EDIN MEASUREMENT RESULTS: Intervals: Rate: 128 ND: 136 QRSD: 80 QT: 296 QTc: 432 [place]: P: 73 ND: 136 QRS: 77 T: 57 INTERPRETIVE STATEMENTS: Sinus tachycardia Left ventricular hypertrophy with repolarization abnormality Abnormal ECG Compared to ECG 06/19/2024 02:31:48 Sinus rhythm no longer present Electronically Signed On 06-19-24 14:12:27 CDT by Sander Souza
== END 2024-06-19 05:00 | disposition short-term general hospital (02) ==
LOC: ER 00:40
DX: I21.4 Non-ST elevation (NSTEMI) myocardial infarction (principal); I50.9 Heart failure, unspecified; J44.9 Chronic obstructive pulmonary disease, unspecified
CPT/HCPCS: 93005 ×4; 85025; 80048; 36415; 83735; 85610; 80076; 84484 ×2; 83880 ×2; 71045 ×2; 82805; 99285; 36600; 94660; J1644; J1940; J7613; J7644